=== PATIENT | female | born 1990 | race Two or more races ===

== ENCOUNTER 2018-03-13 | Emergency (ER) | payer MEDICAID ==
[~2018-03-13] VITALS: Ht 162.6 cm; Wt 104.3 kg
[2018-03-13 00:28] VITALS: BP 140/85
--- NOTE | 2018-03-13 00:43 | Emergency Room Report ---
History of Present Illness General Chief Complaint: Flu Like Symptoms Source: Patient Present Illness HPI Patient present with complaints of sore throat Cough and congestion left-sided ear pain symptoms started several days ago Patient has a mild cough denies any phlegm production Denies any chest pain or shortness of breath denies any vomiting or diarrhea Patient has some mild general body ache as well Denies any recent travel Denies any neck pain or photophobia Allergies: Coded Allergies: No Known Allergies (Unverified , 03/13/18) Patient History Past Medical History: see triage record Pertinent Family History: none Last Menstrual Period: 02/04/18 Now: No Reviewed Nursing Documentation: PMH: Agreed; PSxH: Agreed Nursing Documentation-PMH Past Medical History: No Stated History Review of Systems All Other Systems: negative except mentioned in HPI Physical Exam Vital Signs Date Time Temp Pulse Resp B/P (MAP) Pulse Ox O2 Delivery O2 Flow Rate FiO2 03/13/18 00:19 98.8 68 16 140/85 98 03/13/18 00:28 Room Air Sp02 EP Interpretation: reviewed, normal General Appearance: well appearing, no apparent distress Head: normocephalic, atraumatic Eyes: bilateral eye PERRL, bilateral eye EOMI ENT: hearing grossly normal, TMs + canals normal, uvula midline, pharyngeal erythema Neck: full range of motion, supple, no meningismus, no bony tend Respiratory: lungs clear, normal breath sounds, no rhonchi, no respiratory distress, no retraction, no accessory muscle use Cardiovascular #1: normal peripheral pulses, regular rate, rhythm, no edema, no gallop, no JVD, no murmur Gastrointestinal: normal bowel sounds, non tender, soft, no mass, no organomegaly, non-distended, no guarding, no hernia, no pulsatile mass, no rebound Genitourinary: no CVA tenderness Musculoskeletal: normal inspection Neurologic: oriented x3, responsive, travel pta III-XII nml as tested, motor strength/ tone normal, sensory intact Psychiatric: mood/affect normal Skin: normal color, no rash, warm/dry, palpation normal Lymphatic: normal inspection, no adenopathy Medical Decision Making Diagnostic Impression: Primary Impression: Pharyngitis ER Course Patient's clinical presentation and exam is consistent with pharyngitis With secondary pathology likely due to that I do not suspect any obvious meningitis does not have any symptoms of ammonia does not appear septic or toxic and will have initial conservative outpatient trial Last Vital Signs Date Time Temp Pulse Resp B/P (MAP) Pulse Ox O2 Delivery O2 Flow Rate FiO2 03/13/18 00:28 68 16 Room Air 03/13/18 00:28 98.8 140/85 98 Status: unchanged Disposition: HOME, SELF-CARE Condition: Stable Additional Instructions: Patient is provided with the discharge instructions notified to follow up with primary doctor in the next 2-3 days otherwise return to the er with any worsening symptoms. Please note that this report is being documented using [employer] technology. This can lead to erroneous entry secondary to incorrect interpretation by the dictating instrument. Dennise Hunt DO Mar 13, 2018 00:43
[2018-03-13] MEDS ORDERED: IBUPROFEN600 MG ORAL (00:44)
[2018-03-13] MEDS ORDERED: AMOXICILLIN500 MG ORAL (00:44)
[2018-03-13 01:02] VITALS: BP 140/85
== END 2018-03-13 01:00 | disposition home or self-care (01) ==
LOC: EMR 00:14
DX: J02.9 Acute pharyngitis, unspecified (principal); H92.02 Otalgia, left ear; R05 Cough; R09.81 Nasal congestion
CPT/HCPCS: 99283

== ENCOUNTER 2018-03-21 19:47 | Emergency (ER) | payer MEDICAID ==
[~2018-03-21] VITALS: Ht 157.5 cm; Wt 104.3 kg
[~2018-03-21 19:47] MED LIST: AMOXICILLIN500 MG ORAL; IBUPROFEN600 MG ORAL
[2018-03-21 20:05] VITALS: BP 128/85
[2018-03-21] MEDS ORDERED: Norco 5mg/325mg tab ORAL ONE (20:15)
[2018-03-21] MEDS ORDERED: HYDROCODON-ACE1 EA15 ORAL (20:16)
[2018-03-21] MEDS ORDERED: IBUPROFEN600 MG ORAL (20:16)
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
[2018-03-21 20:26] VITALS: BP 122/86
== END 2018-03-21 20:26 | disposition home or self-care (01) ==
LOC: EMR 20:11
DX: S29.012A Strain of muscle and tendon of back wall of thorax, initial encounter (principal); S39.012A Strain of muscle, fascia and tendon of lower back, initial encounter; V43.92XA Unspecified car occupant injured in collision with other type car in traffic accident, initial encounter; Y92.410 Unspecified street and highway as the place of occurrence of the external cause
CPT/HCPCS: 99282

== ENCOUNTER 2018-07-25 22:39 | Emergency (ER) | payer MEDICAID ==
[~2018-07-25] VITALS: Ht 160 cm; Wt 106.1 kg
[~2018-07-25 22:39] MED LIST changes: +HYDROCODON-ACE1 EA15 ORAL
[2018-07-25] MEDS ORDERED: NKM (22:46)
--- NOTE | 2018-07-25 23:06 | Emergency Room Report ---
History of Present Illness General Chief Complaint: General Complaint Source: Patient Present Illness HPI Is a 27 year female with no past medical history. She presents with chief complaint of dizziness. This occur doing work on her break. She felt lightheaded and dizzy. She came home and had a fever subjectively. After was sweating. Denies any nausea vomiting. Denies any cough or congestion. Denies any urinary complaint. No abdominal pain. Better now. Denies any other complaint. Allergies: Coded Allergies: No Known Allergies (Unverified , 03/13/18) Patient History Past Medical History: see triage record, old chart reviewed Past Surgical History: none Pertinent Family History: none Social History: Denies: smoking Last Menstrual Period: 06/25/18 Now: No : 2 Para: 1 Immunizations: other Reviewed Nursing Documentation: PMH: Agreed; PSxH: Agreed Nursing Documentation-PMH Past Medical History: No History, Except For Review of Systems Constitutional: Reports: chills, sweats, fever Eye: Denies: eye pain, blurred vision ENT: Denies: ear pain, nose congestion, throat swelling Respiratory: Denies: cough, shortness of breath Cardiovascular: Denies: chest pain, palpitations Gastrointestinal: Denies: abdominal pain, diarrhea, nausea, vomiting Musculoskeletal: Denies: back pain, joint pain Skin: Denies: rash Neurological: Reports: dizziness; Denies: headache, numbness Endocrine: Denies: increased thirst, increased urine Hematologic/Lymphatic: Denies: easy bruising All Other Systems: negative except mentioned in HPI Physical Exam Vital Signs Date Time Temp Pulse Resp B/P (MAP) Pulse Ox O2 Delivery O2 Flow Rate FiO2 07/25/18 22:41 99.5 99 18 135/92 97 Room Air vitals unremarkable Sp02 EP Interpretation: reviewed, normal General Appearance: well appearing, no apparent distress, alert Head: normocephalic, atraumatic Eyes: bilateral eye PERRL, bilateral eye EOMI ENT: hearing grossly normal, normal pharynx Neck: full range of motion, supple, no meningismus Respiratory: chest non-tender, lungs clear, normal breath sounds Cardiovascular #1: regular rate, rhythm, no murmur Gastrointestinal: normal bowel sounds, non tender, no mass, no organomegaly, no bruit, non-distended Musculoskeletal: back normal, gait/station normal, normal range of motion Psychiatric: mood/affect normal Skin: warm/dry Medical Decision Making Diagnostic Impression: Primary Impression: Generalized weakness ER Course Patient presents with generalize weakness and dizziness. She did have a low- grade fever. No evidence of any bacterial infection. This may be very early in the process of an illness. Most likely viral in nature. Explained this to the patient. If symptom worsen definitely come on back. She felt better now. We'll discharge home. Last Vital Signs Date Time Temp Pulse Resp B/P (MAP) Pulse Ox O2 Delivery O2 Flow Rate FiO2 07/25/18 22:41 99.5 99 18 135/92 97 Room Air Status: improved Disposition: HOME, SELF-CARE Condition: Stable Scripts Ibuprofen* (MOTRIN*) 600 Mg Tablet 600 MG ORAL THREE TIMES A DAY, #30 TAB 0 Refills Prov: Ryan Owens MD 07/25/18 Additional Instructions: Follow-up with your DrOralia in 7 days. Return if symptom worsen. Ryan Owens MD Jul 25, 2018 23:06
[2018-07-25] MEDS ORDERED: Ketorolac 30mg Inj IV ONE (23:15)
[2018-07-25 23:24] VITALS: BP 142/90
[2018-07-25 23:31] LABS: APPEARANCE,URINE CLEAR; BILIRUBIN, URINE NEGATIVE (NEGATIVE); COLOR,URINE PALE YELLOW; GLUCOSE, URINE (UA) NEGATIVE (NEGATIVE); KETONES,URINE NEGATIVE (NEGATIVE); LEUKOCYTE ESTERASE ,URINE 1+ (NEGATIVE); NITRITE,URINE NEGATIVE (NEGATIVE); PH,URINE 6 (4.5-8.0); PROTEIN,URINE NEGATIVE (NEGATIVE); UROBILINOGEN,URINE NORMAL MG/DL (0.0-1.0)
[2018-07-25 23:34] LABS: BASOPHILS % (AUTO) 0.7 % (0.0-2.0); HEMATOCRIT 39.8 % (37.0-47.0); HEMOGLOBIN 14.1 G/DL (12.0-16.0); LYMPHOCYTES % (AUTO) 22.6 % (20.0-45.0); MEAN CORPUSCULAR VOLUME 90 FL (80-99); MONOCYTES % (AUTO) 5.9 % (1.0-10.0); NEUTROPHILS % (AUTO) 68.7 % (45.0-75.0); PLATELET COUNT 350 K/UL (150-450); RED BLOOD COUNT 4.41 M/UL (4.20-5.40); RED CELL DISTRIBUTION WIDTH 11.5 % (11.6-14.8); WHITE BLOOD COUNT 8.1 K/UL (4.8-10.8)
[2018-07-25 23:43] LABS: ANION GAP 9 mmol/L (5-15); BLOOD UREA NITROGEN 17 mg/dL (7-18); CALCIUM 8.6 MG/DL (8.5-10.1); CARBON DIOXIDE 27 MMOL/L (21-32); CHLORIDE 99 MMOL/L (98-107); CREATININE 0.8 MG/DL (0.55-1.30); POTASSIUM 3.9 MMOL/L (3.5-5.1); SODIUM 135 MMOL/L (136-145)
[2018-07-25 23:51] VITALS: BP 134/81
[2018-07-25] MEDS ORDERED: IBUPROFEN600 MG ORAL (23:53)
[2018-07-26] MEDS ORDERED: ZANTAC150 MG ORAL (19:40)
[2018-07-26] MEDS ORDERED: NEXIUM40 MG ORAL (19:40)
== END 2018-07-25 23:55 | disposition home or self-care (01) ==
LOC: EMR 22:52
DX: R53.1 Weakness (principal)
CPT/HCPCS: 36415; 80048; 81001; 81025; 85025; 96361; 96374; 99284; J1885

== ENCOUNTER 2018-07-26 16:09 | Emergency (ER) | payer MEDICAID ==
[~2018-07-26] VITALS: Ht 160 cm; Wt 106.1 kg
[~2018-07-26 16:09] MED LIST changes: +NKM
--- NOTE | 2018-07-26 16:20 | NUR ---
ED Nurse Note: pt walked in ED c/o abd pain and fever since yesterday, pt states abd pain started yesterday on epigastric region, sharp pain,but denies n/v/d at this time but states had nausea earlier. Temp 99.7 in triage. Last BM was today, hard stool, reports constipation. Pt AA&ox4, gcs=15, skin warm and dry, resp even and unlabored on RA, abd soft and tender, active BS, no active n/v/d, ambulates w/ steady gait. will cont monitor.
[2018-07-26 16:25] VITALS: BP 135/92
[2018-07-26] MEDS ORDERED: Lidocaine 2% Visc 15ml soln ORAL ONE (16:45)
[2018-07-26] MEDS ORDERED: Mylanta II UD 30ml ORAL ONE (16:45)
--- NOTE | 2018-07-26 16:47 | Emergency Room Report ---
History of Present Illness General Chief Complaint: Abdominal Pain Source: Patient Present Illness HPI 27-year-old female presents to the emergency department complaining of 9 out of 10 in severity abdominal pain localized to the epigastric region times one day. Patient states that she was seen here in the emergency department for having symptoms of dizziness, nausea and intermittent hot flashes with sweating that were occurring yesterday. Patient reports she still has some episodes of dizziness which she describes as feeling near syncopal. She states she did feel some palpitations yesterday during hot flash and she states that she has not noticed any today. Patient denies past medical history other than some acid reflux. Patient states that yesterday she did take some Nexium which did not provide any relief. She reports low-grade fevers and intermittent chills. Denies recent travel or ill contacts with similar symptoms she reports she vomited after taking Nexium however no other vomiting otherwise. She believes that laying down may exacerbate her pain and she states she has chronic dull epigastric pain with on occasion acute exacerbations. no relieving factors at this time. She states she is not sure if she is . Denies Sudden onset of CALLE. Pt. reports hx of sciatica and frequent use of IBU. including use the day prior to onset of her symptoms. Allergies: Coded Allergies: No Known Allergies (Unverified , 03/13/18) Patient History Past Medical History: see triage record Past Surgical History: none Pertinent Family History: none Last Menstrual Period: 06/2018 Now: No Reviewed Nursing Documentation: PMH: Agreed; PSxH: Agreed Nursing Documentation-PMH Past Medical History: No History, Except For Review of Systems All Other Systems: negative except mentioned in HPI Physical Exam Vital Signs Date Time Temp Pulse Resp B/P (MAP) Pulse Ox O2 Delivery O2 Flow Rate FiO2 07/26/18 16:14 99.7 96 20 135/92 98 Room Air Sp02 EP Interpretation: reviewed, normal General Appearance: alert, GCS 15, non-toxic, mild distress Head: normocephalic, atraumatic Eyes: bilateral eye normal inspection, bilateral eye PERRL ENT: hearing grossly normal, normal voice Neck: full range of motion Respiratory: lungs clear, normal breath sounds, speaking full sentences Cardiovascular #1: regular rate, rhythm Gastrointestinal: normal bowel sounds, soft, non-distended, no guarding, tenderness - mid-epigastric TTP Rectal: deferred Genitourinary: normal inspection Musculoskeletal: back normal, gait/station normal, normal range of motion, non- tender Neurologic: alert, oriented x3, responsive, motor strength/tone normal, sensory intact, speech normal, grossly normal Psychiatric: judgement/insight normal Skin: normal color, no rash, warm/dry, well hydrated Lymphatic: no adenopathy Medical Decision Making PA Attestation Dr. Peters is my supervising Physician whom patient management has been discussed with. Diagnostic Impression: Primary Impression: Abdominal pain Qualified Codes: R10.13 - Epigastric pain Additional Impression: Peptic ulcer ER Course 27-year-old female presents to the emergency department complaining of 9 out of 10 in severity abdominal pain localized to the epigastric region times one day. Patient states that she was seen here in the emergency department for having symptoms of dizziness, nausea and intermittent hot flashes with sweating that were occurring yesterday. Patient reports she still has some episodes of dizziness which she describes as feeling near syncopal. She states she did feel some palpitations yesterday during hot flash and she states that she has not noticed any today. Patient denies past medical history other than some acid reflux. Patient states that yesterday she did take some Nexium which did not provide any relief. She reports low-grade fevers and intermittent chills. Denies recent travel or ill contacts with similar symptoms she reports she vomited after taking Nexium however no other vomiting otherwise. She believes that laying down may exacerbate her pain and she states she has chronic dull epigastric pain with on occasion acute exacerbations. no relieving factors at this time. She states she is not sure if she is . Denies Sudden onset of CALLE. Pt. reports hx of sciatica and frequent use of IBU. including use the day prior to onset of her symptoms. Ddx considered but are not limited to Diverticulitis, acute appy, diarrhea,UC, PUD, GE, pancreatitis, gallstone, ovarian torsion, ectopic , PID tubo-ovarian abscess. Vital signs: are WNL, pt. is afebrile H&PE are most consistent with peptic Ulcer due to IBU use or gallbladder etiology due to diet and body habitus, will evaluate for both. 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 LIPASE-UA: as performed yesterday and was normal I did not feel that repeat within 24 hours would foreign exchange dealer. -URINE HCG: NEGATIVE -LIPASE: WNL EKbpm NSR ED INTERVENTIONS: - 1 liter NS IV - GI Cocktail - Protonix PO -I do not identify an emergent condition at this time. With current presentation , pt. is stable for close outpatient follow up and conservative treatment. D/ w pt. to return promptly to ED with worsening or new symptoms.- Pt. verbalizes' understanding and agreement with proposed treatment plan. DISCHARGE: At this time pt. is stable for d/c to home. Will provide printed patient care instructions, and any necessary prescriptions. Care plan and follow up instructions have been discussed with the patient prior to discharge. Labs Test 07/26/18 16:47 Urine HCG, Qualitative Negative (NEGATIVE) Lipase 134 U/L ([id number]) EKG Diagnostic Results EP Interpretation: Dr. Peters Rate: normal - 93bpm Rhythm: NSR ST Segments: no acute changes ASA given to the pt in ED: No PA Scribe Text This Interpretation was scribed by DONNIE Nix. CT/MRI/US Diagnostic Results CT/MRI/US Diagnostic Results : Impression unremarkable other than fatty liver ---Per official radiology report- Please see report for specific details. Last Vital Signs Date Time Temp Pulse Resp B/P (MAP) Pulse Ox O2 Delivery O2 Flow Rate FiO2 07/26/18 16:25 99.7 94 18 135/92 98 Room Air Status: improved Disposition: HOME, SELF-CARE Condition: Stable Scripts Ranitidine Hcl* (ZANTAC*) 150 Mg Tablet 150 MG ORAL DAILY, #30 TAB 0 Refills Prov: Hailee Nix 07/26/18 Esomeprazole Magnesium (NEXIUM) 40 Mg Capsule.dr 40 MG ORAL BID, #28 CAP Take TWICE DAILY for 7 days, then reduce to ONCE DAILY. Prov: Hailee Nix 07/26/18 Referrals: NON PHYSICIAN (PCP) Patient Instructions: Food Choices for Peptic Ulcer Disease, Peptic Ulcer, Easy -to-Read Additional Instructions: Take medications as directed. * DISCONTINUE USE OF IBUPROFEN/ ADVIL. Follow up with a Primary Care Provider in 3-5 days FOR GI SPECIALIST REFERRAL , even if your symptoms have resolved. --Please review list of primary care clinics, if you do not already have a primary care provider Return sooner to ED if new symptoms occur, or current symptoms become worse. - Please note that this Emergency Department Report was dictated using [employer] operator helper technology software, occasionally this can lead to erroneous entry secondary to interpretation by the dictation equipment. Hailee Nix Jul 26, 2018 16:47
--- NOTE | 2018-07-26 18:20 | NUR ---
ED Nurse Note: ultrasound at the bedside.
--- NOTE | 2018-07-26 19:20 | Diagnostic Imaging Report ---
Indication:Abdominal pain Technique: Grayscale and duplex Doppler imaging of the abdomen performed. Comparison: None Findings: The liver is enlarged and slightly echogenic consistent with fatty infiltration. The gallbladder is unremarkable. The demonstrated part of the pancreas, aorta and IVC show no abnormalities. Both kidneys appear unremarkable. The spleen is normal in size. There is no biliary ductal dilatation identified. Doppler evaluation of the main portal vein shows patency. There is no ascites. No hydronephrosis seen. CBD is 3.5 mm. Impression: Hepatomegaly with fatty infiltration
[2018-07-26] MEDS ORDERED: NEXIUM40 MG ORAL (19:40)
[2018-07-26] MEDS ORDERED: ZANTAC150 MG ORAL (19:40)
--- NOTE | 2018-07-26 20:05 | NUR ---
ED Nurse Note: pt cleared to be d/c per ERMD, pt d/c and aftercare instruction provided w/ prescription, pt education done via discussion and handout, pt advised to follow up with pcp to continue care or return to ed if sx worsen or new sx develop, pt verbalized understanding and agrees with plan. pt vss, ambulatory w/ steady gait, iv d/c and wristband removed, pt left w/ all belongings.
[2018-07-26 20:06] VITALS: BP 143/88
== END 2018-07-26 20:05 | disposition home or self-care (01) ==
LOC: EMR 16:39
DX: K27.9 Peptic ulcer, site unspecified, unspecified as acute or chronic, without hemorrhage or perforation (principal)
CPT/HCPCS: 36415; 76700; 81025; 83690; 93005; 96361; 96374; 99284; S0028

== ENCOUNTER 2019-06-24 15:57 | Emergency (ER) | payer MEDICAID ==
[~2019-06-24] VITALS: Ht 160 cm; Wt 106.6 kg
[~2019-06-24 15:57] MED LIST changes: +NEXIUM40 MG ORAL; +PRILOSEC OTC20 MG ORAL; +ZANTAC150 MG ORAL
--- NOTE | 2019-06-24 16:20 | NUR ---
ED Nurse Note: Patient walked in to ER from work due to abdominal pain, N/D x 1 day. Patient stated she is feeling very dizzy since this morning. ERMD at bedside. IV access extablished, blood collected and sent down to lab with urine sample provided. Placed patient in hospital gown, cont. tick sewer showing NSR. No respiratory distress noted. Will carry out orders and will continue to monitor.
[2019-06-24 16:33] VITALS: BP 100/66
[2019-06-24 16:55] LABS: APPEARANCE,URINE CLEAR; BILIRUBIN, URINE 1+ (NEGATIVE); GLUCOSE, URINE (UA) NEGATIVE (NEGATIVE); KETONES,URINE NEGATIVE (NEGATIVE); LEUKOCYTE ESTERASE ,URINE 1+ (NEGATIVE); NITRITE,URINE NEGATIVE (NEGATIVE); PH,URINE 5 (4.5-8.0); PROTEIN,URINE 1+ (NEGATIVE); UROBILINOGEN,URINE NORMAL MG/DL (0.0-1.0)
[2019-06-24 17:00] LABS: COLOR,URINE YELLOW
[2019-06-24 17:03] LABS: HEMATOCRIT 45.6 % (37.0-47.0); HEMOGLOBIN 14.9 G/DL (12.0-16.0); MEAN CORPUSCULAR VOLUME 93 FL (80-99); PLATELET COUNT 357 K/UL (150-450); RED BLOOD COUNT 4.91 M/UL (4.20-5.40); RED CELL DISTRIBUTION WIDTH 13.3 % (11.6-14.8); WHITE BLOOD COUNT 9.6 K/UL (4.8-10.8)
[2019-06-24 17:05] LABS: ALANINE AMINOTRANSFERASE 26 U/L (12-78); ALBUMIN 3.8 G/DL (3.4-5.0); ALKALINE PHOSPHATASE 76 U/L (46-116); ANION GAP 12 mmol/L (5-15); ASPARTATE AMINO TRANSFERASE 16 U/L (15-37); BILIRUBIN,TOTAL 0.6 MG/DL (0.2-1.0); BLOOD UREA NITROGEN 20 mg/dL (7-18); CALCIUM 8.5 MG/DL (8.5-10.1); CARBON DIOXIDE 25 MMOL/L (21-32); CHLORIDE 102 MMOL/L (98-107); CREATININE 0.9 MG/DL (0.55-1.30); POTASSIUM 4.1 MMOL/L (3.5-5.1); SODIUM 139 MMOL/L (136-145)
--- NOTE | 2019-06-24 17:14 | NUR ---
ED Nurse Note: Influenza swab collected, sent to lab. IVF ongoing.
[2019-06-24 17:37] VITALS: BP 109/75
--- NOTE | 2019-06-24 17:47 | Emergency Room Report ---
History of Present Illness General Chief Complaint: Abdominal Pain Source: Patient Present Illness HPI 20-year-old female with no significant past medical history here complaining of nausea and vomiting as well as dizziness that started today. Denies any recent travel, fever and chills, URI symptoms. Denies any abdominal pain at this time. Denies urinary symptoms. Denies at this time. Denies chest pain chest pain radiation. Complains of few bouts of nonbloody emesis. Complains of 2 bouts of nonbloody diarrhea. Reports that she started getting dizzy and tingling sensation in her arms after she had already vomited 2 times. Patient is obese. Abdomen is nontender and patient is not guarding. Also complains of generalized body aches. Allergies: Coded Allergies: No Known Allergies (Unverified , 03/13/18) Patient History Past Medical History: see triage record Past Surgical History: none Pertinent Family History: none Last Menstrual Period: 05/25/2019 Now: No Immunizations: UTD Reviewed Nursing Documentation: PMH: Agreed; PSxH: Agreed Nursing Documentation-PMH Past Medical History: No Stated History Review of Systems All Other Systems: negative except mentioned in HPI Physical Exam Vital Signs Date Time Temp Pulse Resp B/P (MAP) Pulse Ox O2 Delivery O2 Flow Rate FiO2 06/24/19 16:01 98.2 122 18 109/66 (80) 96 Room Air Sp02 EP Interpretation: reviewed, normal General Appearance: no apparent distress, alert, GCS 15, non-toxic Head: normocephalic, atraumatic Eyes: bilateral eye normal inspection, bilateral eye PERRL ENT: hearing grossly normal, normal pharynx, no angioedema, normal voice Neck: normal inspection, full range of motion, supple, thyroid normal, no meningismus, no bony tend Respiratory: chest non-tender, lungs clear, normal breath sounds, no rhonchi, no respiratory distress, no retraction, no wheezing, speaking full sentences Cardiovascular #1: regular rate, rhythm, no edema, no murmur, normal capillary refill Cardiovascular #2: 2+ carotid (R), 2+ carotid (L), 2+ radial (L), 2+ femoral (R ), 2+ femoral (L), 2+ dorsalis pedis (R), 2+ dorsalis pedis (L) Gastrointestinal: normal bowel sounds, non tender, soft, no mass, no organomegaly, no peritonitis, no bruit, non-distended, no guarding, no hernia, no pulsatile mass, no rebound Rectal: deferred Genitourinary: no CVA tenderness Musculoskeletal: back normal Neurologic: alert, motor strength/tone normal, oriented x3, sensory intact, responsive, speech normal Psychiatric: judgement/insight normal, memory normal, mood/affect normal, no suicidal/homicidal ideation Skin: no rash Lymphatic: no adenopathy Medical Decision Making PA Attestation All my diagnosis and treatment plans were reviewed ad discussed with my supervising physician Dr. Noel Diagnostic Impression: Primary Impression: Nausea & vomiting Additional Impressions: Dehydration UTI (urinary tract infection) ER Course 20-year-old female with no significant past medical history here complaining of nausea and vomiting as well as dizziness that started today. Denies any recent travel, fever and chills, URI symptoms. Denies any abdominal pain at this time. Denies urinary symptoms. Denies at this time. Denies chest pain chest pain radiation. Complains of few bouts of nonbloody emesis. Complains of 2 bouts of nonbloody diarrhea. Reports that she started getting dizzy and tingling sensation in her arms after she had already vomited 2 times. Patient is obese. Abdomen is nontender and patient is not guarding. Also complains of generalized body aches. Ddx considered but are not limited to: Gastroenteritis, flulike symptoms, dehydration, UTI, appendicitis, cholecystitis Vital signs: are WNL, pt. is afebrile H&PE are most consistent with: UTI, dehydration, nausea vomiting ORDERS: CBC, CMP, lipase, UA, drug screen, urine test, omeprazole, Zofran, dicyclomine, Macrobid ED INTERVENTIONS: Pepcid, Zofran, NS bolus DISCHARGE: At this time pt. is stable for d/c to home. Will provide printed patient care instructions, and any necessary prescriptions. Care plan and follow up instructions have been discussed with the patient prior to discharge. At this time I do not believe the patient has any further imaging his abdomen is nontender to palpation, white count is within normal limits patient presents with generalized body ache mostly secondary to flulike symptom. Advised patient return to emergency room worsening symptoms. Abdominal pain. Also dizziness secondary to dehydration secondary to nausea and vomiting. Due to patient's gastritis history patient to avoid greasy and spicy acidic food. Last Vital Signs Date Time Temp Pulse Resp B/P (MAP) Pulse Ox O2 Delivery O2 Flow Rate FiO2 06/24/19 17:37 98.2 96 18 109/75 100 Room Air Disposition: HOME, SELF-CARE Condition: Stable Scripts Nitrofurantoin Monohyd/M-Cryst* (MACROBID 100 MG*) 100 Mg Capsule 100 MG ORAL EVERY 12 HOURS for 7 Days, #14 CAP Prov: Judith Rob 06/24/19 Acetaminophen* (TYLENOL EXTRA STRENGTH*) 500 Mg Tablet 500 MG ORAL Q8H PRN for Prn Headache/Temp > 101, #30 TAB 0 Refills Prov: Judith Rob 06/24/19 Dicyclomine Hcl* (DICYCLOMINE HCL*) 10 Mg Capsule 10 MG ORAL QID, #20 CAP Prov: Judith Rob 06/24/19 Omeprazole (OMEPRAZOLE) 20 Mg Tablet.dr 20 MG ORAL DAILY, #20 TAB Prov: Judith Rob 06/24/19 Ondansetron (Zofran) 4 Mg Tablet 4 MG ORAL Q6H PRN for Nausea & Vomiting, #14 TAB Prov: Judith Rob 06/24/19 Patient Instructions: Abdominal Pain, Adult, Dehydration, Adult, [id number], Nausea and Vomiting, Adult, [id number], Urinary Tract Infection, [id number] Additional Instructions: Take medication as directed, increase oral hydration, keep a brat diet, if worsening symptoms return to the emergency room Judith Rob Jun 24, 2019 17:47
[2019-06-24] MEDS ORDERED: ZOFRAN4 M1 ORAL (17:48)
[2019-06-24] MEDS ORDERED: DICYCLOMINE HCL10 MG ORAL (17:48)
[2019-06-24] MEDS ORDERED: OMEPRAZOLE20 M3 ORAL (17:48)
[2019-06-24] MEDS ORDERED: TYLENOL EXTRA500 MG ORAL (17:48)
[2019-06-24] MEDS ORDERED: NITROFURANTOIN100 M2 ORAL (17:49)
[2019-06-24 17:55] VITALS: BP 110/72
--- NOTE | 2019-06-24 17:56 | NUR ---
ER DISCHARGE NOTE: Patient is cleared to be discharged per ANDREA LARIOS, pt is aox4, on room air, with stable vital signs. pt was given dc and prescription instructions, pt was able to verbalize understanding, pt id band and iv site removed without complications. pt is able to ambulate with steady gait. pt took all belongings.
== END 2019-06-24 17:56 | disposition home or self-care (01) ==
LOC: EMR 16:15
DX: R11.2 Nausea with vomiting, unspecified (principal); E86.0 Dehydration; N39.0 Urinary tract infection, site not specified
CPT/HCPCS: 36415; 80053; 80307; 81003; 81025; 83690; 85007; 85025; 86710; 96361; 96374; 96375; J2405; J7030; S0028; Z7502; 99284

== ENCOUNTER 2019-09-29 18:01 | Inpatient (IN) | payer MEDICAID ==
[~2019-09-29] VITALS: Ht 160 cm; Wt 111.6 kg
[~2019-09-29 18:01] MED LIST changes: +DICYCLOMINE HCL10 MG ORAL; +NITROFURANTOIN100 M2 ORAL; +OMEPRAZOLE20 M3 ORAL; +TYLENOL EXTRA500 MG ORAL; +ZOFRAN4 M1 ORAL
[2019-09-29 18:15] VITALS: BP 118/72
--- NOTE | 2019-09-29 18:15 | NUR ---
ED Nurse Note: Pt walked in from home d/t lower abd pain, sharp 8/10 with dizziness since this morning. Pt having increased pain when passing gas and having BM. Respirations even and unlabored on room air. Vitals stable as documented.
[2019-09-29] MEDS ORDERED: Morphine Sulfate 4mg/ml Inj (IV USE ONLY) IVP ONE (18:30)
--- NOTE | 2019-09-29 18:51 | NUR ---
ED Nurse Note: urine and blood sent to lab
[2019-09-29 19:10] LABS: APPEARANCE,URINE CLEAR; BILIRUBIN, URINE NEGATIVE (NEGATIVE); COLOR,URINE PALE YELLOW; GLUCOSE, URINE (UA) NEGATIVE (NEGATIVE); KETONES,URINE NEGATIVE (NEGATIVE); LEUKOCYTE ESTERASE ,URINE NEGATIVE (NEGATIVE); NITRITE,URINE NEGATIVE (NEGATIVE); PH,URINE 8 (4.5-8.0); PROTEIN,URINE NEGATIVE (NEGATIVE); UROBILINOGEN,URINE NORMAL MG/DL (0.0-1.0)
--- NOTE | 2019-09-29 19:10 | NUR ---
ED Nurse Note: Pt resting in bed comfortably, no ss of distress noted. VSS. Will continue to monitor.
--- NOTE | 2019-09-29 19:11 | NUR ---
HAND-OFF:Report given to ANG Man. Pt in stable condition; plan of care endorsed.
[2019-09-29 19:12] LABS: BASOPHILS % (AUTO) 0.9 % (0.0-2.0); EOSINOPHILS % (AUTO) 0.5 % (0.0-3.0); HEMATOCRIT 41.5 % (37.0-47.0); HEMOGLOBIN 13.6 G/DL (12.0-16.0); LYMPHOCYTES % (AUTO) 13.6 % (20.0-45.0); MEAN CORPUSCULAR VOLUME 95 FL (80-99); MONOCYTES % (AUTO) 5.3 % (1.0-10.0); NEUTROPHILS % (AUTO) 79.8 % (45.0-75.0); PLATELET COUNT 402 K/UL (150-450); RED BLOOD COUNT 4.38 M/UL (4.20-5.40); RED CELL DISTRIBUTION WIDTH 12.8 % (11.6-14.8); WHITE BLOOD COUNT 15.7 K/UL (4.8-10.8)
[2019-09-29 19:18] LABS: ANION GAP 10 mmol/L (5-15); BLOOD UREA NITROGEN 9 mg/dL (7-18); CALCIUM 8.8 MG/DL (8.5-10.1); CARBON DIOXIDE 28 MMOL/L (21-32); CHLORIDE 97 MMOL/L (98-107); POTASSIUM 3.5 MMOL/L (3.5-5.1); SODIUM 135 MMOL/L (136-145)
[2019-09-29 19:22] LABS: ALANINE AMINOTRANSFERASE 24 U/L (12-78); ALBUMIN 3.8 G/DL (3.4-5.0); ALKALINE PHOSPHATASE 92 U/L (46-116); ASPARTATE AMINO TRANSFERASE 14 U/L (15-37); BILIRUBIN,TOTAL 0.8 MG/DL (0.2-1.0)
--- NOTE | 2019-09-29 19:40 | NUR ---
ED Nurse Note: Consent for CT signed, awaiting pt being taken to CT. Will continue to monitor.
[2019-09-29] MEDS ORDERED: Omnipaque-300 100ml vial INJ PRN (19:45)
--- NOTE | 2019-09-29 20:03 | NUR ---
ED Nurse Note: Assisted pt to commode. pt tolerated well no ss of distress. will continue to monitor.
--- NOTE | 2019-09-29 20:15 | NUR ---
ED Nurse Note: Pt taken to CT in stable condition. VSS no ss of distress noted.
[2019-09-29 20:45] VITALS: BP 122/75
--- NOTE | 2019-09-29 20:50 | Diagnostic Imaging Report ---
CT abdomen and pelvis with contrast History: Abdominal pain Technique: Axial contrast-enhanced CT of the abdomen and pelvis with coronal, sagittal reformatted images. CTDI is 14.2 mGy and DLP is 765.3 mGy-cm. Technique more: One or more of the following dose reduction techniques were used: automated exposure control, adjustment of the mA and/or kV according to patient size, use of iterative reconstruction technique. Comparison: None Findings: Lung bases: Normal Distal heart and esophagus: Moderate hiatal hernia. Liver: No intrahepatic lesion or ductal dilation. Gallbladder: Normal Spleen: Normal Pancreas: Normal Adrenals: Normal Kidneys: Negative for hydronephrosis or stones. Retroperitoneum: Normal caliber of the aorta. Shotty retroperitoneal lymphadenopathy. Bowel: Normal appendix. Mild transverse colon, moderate left sided and sigmoid diverticulosis. Moderate sigmoid diverticulitis with streakiness in the fat around the sigmoid colon. Negative for abscess or rupture Pelvis: Physiologic ovarian cysts. Trace pelvic free fluid. Bones: No lytic or blastic bony lesions. Impression: 1. Moderate sigmoid diverticulitis. Negative for abscess or rupture.
[2019-09-29] MEDS ORDERED: Ketorolac 30mg Inj IV ONE (21:45)
[2019-09-29 22:08] VITALS: BP 121/75
--- NOTE | 2019-09-29 22:26 | NUR ---
ED Nurse Note: report given to ANG Gary
--- NOTE | 2019-09-29 22:51 | NUR ---
ER DISCHARGE NOTE: Patient is cleared to be discharged to [facility] unit per ERMD, pt is aox4, 98% on room air, with stable vital signs. pt was given dc instructions, pt was able to verbalize understanding. pt is able to ambulate with steady gait. pt took all belongings. Pt transferred to unit with 1 RN.
--- NOTE | 2019-09-29 22:57 | Emergency Room Report ---
History of Present Illness General Chief Complaint: Abdominal Pain Source: Patient Present Illness HPI 28-year-old female presents for lower abdominal pain. Started this morning. Sharp, 7 out of 10, localized to the right lower abdomen. Notes nausea, denies vomiting. Denies diarrhea. Denies fevers or chills. No other aggravating relieving factors. 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 Patient History Past Surgical History: none Pertinent Family History: none Social History: Denies: smoking, alcohol use, drug use Last Menstrual Period: 2 weeks ago Now: No : 2 Para: 1 Immunizations: UTD Reviewed Nursing Documentation: PMH: Agreed; PSxH: Agreed Nursing Documentation-PMH Past Medical History: No History, Except For Review of Systems All Other Systems: negative except mentioned in HPI Physical Exam Vital Signs Date Time Temp Pulse Resp B/P (MAP) Pulse Ox O2 Delivery O2 Flow Rate FiO2 09/29/19 18:05 99.9 110 17 121/74 (90) 97 Room Air Sp02 EP Interpretation: reviewed, normal General Appearance: alert, GCS 15, non-toxic, obese Head: normocephalic, atraumatic Eyes: bilateral eye normal inspection, bilateral eye PERRL ENT: hearing grossly normal, normal pharynx, no angioedema, normal voice Neck: full range of motion, supple/symm/no masses Respiratory: chest non-tender, lungs clear, normal breath sounds, speaking full sentences Cardiovascular #1: regular rate, rhythm, no edema Cardiovascular #2: 2+ carotid (R), 2+ carotid (L), 2+ radial (R), 2+ radial (L) , 2+ dorsalis pedis (R), 2+ dorsalis pedis (L) Gastrointestinal: normal bowel sounds, soft, non-distended, no guarding, no rebound, tenderness - LLQ Rectal: deferred Genitourinary: normal inspection, no CVA tenderness Musculoskeletal: back normal, normal range of motion, gait/station normal, non- tender Neurologic: alert, motor strength/tone normal, oriented x3, sensory intact, responsive, speech normal Psychiatric: judgement/insight normal, memory normal, mood/affect normal, no suicidal/homicidal ideation Reflexes: 3+ bicep (R), 3+ bicep (L), 3+ tricep (R), 3+ tricep (L), 3+ knee (R) , 3+ knee (L) Skin: no rash Lymphatic: no adenopathy Medical Decision Making Diagnostic Impression: Primary Impression: Diverticulitis ER Course Hospital Course 28-year-old female presents to ED with lower abdominal pain Differential diagnoses include: appendicitis, diverticulitis, SBO, gastroenteritis Clinical course Patient placed on stretcher. corporate analyst. After initial history and physical I ordered labs, IV fluids, UA, pain medication and CT scan Labs - noted leukocytosis, Hb/Hct stable. electrolytes ok. CT abdomen and pelvis - diverticulitis without abscess or perforation Patient required additional pain medications. feels weak. Antibiotics given. Case discussed with Dr Zhao and he agreed to accept the patient to his service for further care and support I feel this is a highly complex case requiring extensive working including EKG/ Rhythm strip, Xray/CT/US, Blood/urine lab work, repeat exams while in ED, and administration of strong opiates/narcotics for pain control, admission to hospital or close patient follow up. Diagnosis - divertculitis Patient admitted to floor in serious condition Labs Test 09/29/19 18:50 White Blood Count 15.7 K/UL (4.8-10.8) Red Blood Count 4.38 M/UL (4.20-5.40) Hemoglobin 13.6 G/DL (12.0-16.0) Hematocrit 41.5 % (37.0-47.0) Mean Corpuscular Volume 95 FL (80-99) Mean Corpuscular Hemoglobin 31.0 PG (27.0-31.0) Mean Corpuscular Hemoglobin Concent 32.8 G/DL (32.0-36.0) Red Cell Distribution Width 12.8 % (11.6-14.8) Platelet Count 402 K/UL (150-450) Mean Platelet Volume 6.1 FL (6.5-10.1) Neutrophils (%) (Auto) 79.8 % (45.0-75.0) Lymphocytes (%) (Auto) 13.6 % (20.0-45.0) Monocytes (%) (Auto) 5.3 % (1.0-10.0) Eosinophils (%) (Auto) 0.5 % (0.0-3.0) Basophils (%) (Auto) 0.9 % (0.0-2.0) Urine Color Pale yellow Urine Appearance Clear Urine pH 8 (4.5-8.0) Urine Specific [place] 1.010 (1.005-1.035) Urine Protein Negative (NEGATIVE) Urine Glucose (UA) Negative (NEGATIVE) Urine Ketones Negative (NEGATIVE) Urine Blood 1+ (NEGATIVE) Urine Nitrite Negative (NEGATIVE) Urine Bilirubin Negative (NEGATIVE) Urine Urobilinogen Normal MG/DL (0.0-1.0) Urine Leukocyte Esterase Negative (NEGATIVE) Urine RBC 0-2 /HPF (0 - 2) Urine WBC 0 /HPF (0 - 2) Urine Squamous Epithelial Cells Few /LPF (NONE/OCC) Urine Bacteria Few /HPF (NONE) Urine HCG, Qualitative Negative (NEGATIVE) Sodium Level 135 MMOL/L (136-145) Potassium Level 3.5 MMOL/L (3.5-5.1) Chloride Level 97 MMOL/L (98-107) Carbon Dioxide Level 28 MMOL/L (21-32) Anion Gap 10 mmol/L (5-15) Blood Urea Nitrogen 9 mg/dL (7-18) Creatinine 1.0 MG/DL (0.55-1.30) Estimat Glomerular Filtration Rate > 60 mL/min (>60) Glucose Level 114 MG/DL (74-106) Calcium Level 8.8 MG/DL (8.5-10.1) Total Bilirubin 0.8 MG/DL (0.2-1.0) Aspartate Amino Transf (AST/SGOT) 14 U/L (15-37) Alanine Aminotransferase (ALT/SGPT) 24 U/L (12-78) Alkaline Phosphatase 92 U/L (46-116) Total Protein 7.5 G/DL (6.4-8.2) Albumin 3.8 G/DL (3.4-5.0) Globulin 3.7 g/dL Albumin/Globulin Ratio 1.0 (1.0-2.7) Lipase 129 U/L (73-393) CT/MRI/US Diagnostic Results CT/MRI/US Diagnostic Results : Imaging Test Ordered: CT A/P Impression Procedure: CT Abdomen Pelvis w/Contrast CT abdomen and pelvis with contrast History: Abdominal pain Technique: Axial contrast-enhanced CT of the abdomen and pelvis with coronal, sagittal reformatted images. CTDI is 14.2 mGy and DLP is 765.3 mGy-cm. Technique more: One or more of the following dose reduction techniques were used: automated exposure control, adjustment of the mA and/or kV according to patient size, use of iterative reconstruction technique. Comparison: None Findings: Lung bases: Normal Distal heart and esophagus: Moderate hiatal hernia. Liver: No intrahepatic lesion or ductal dilation. Gallbladder: Normal Spleen: Normal Pancreas: Normal Adrenals: Normal Kidneys: Negative for hydronephrosis or stones. Retroperitoneum: Normal caliber of the aorta. Shotty retroperitoneal lymphadenopathy. Bowel: Normal appendix. Mild transverse colon, moderate left sided and sigmoid diverticulosis. Moderate sigmoid diverticulitis with streakiness in the fat around the sigmoid colon. Negative for abscess or rupture Pelvis: Physiologic ovarian cysts. Trace pelvic free fluid. Bones: No lytic or blastic bony lesions. Impression: 1. Moderate sigmoid diverticulitis. Negative for abscess or rupture. Last Vital Signs Date Time Temp Pulse Resp B/P (MAP) Pulse Ox O2 Delivery O2 Flow Rate FiO2 09/29/19 22:27 99.7 09/29/19 22:08 81 17 121/75 98 Room Air Status: improved Disposition: ADMITTED INPATIENT Condition: Serious Referrals: NON PHYSICIAN (PCP) Channing Noel MD September 29, 2019 22:57
[2019-09-29 23:10] VITALS: BP 111/60
--- NOTE | 2019-09-29 23:10 | NUR ---
NURSE NOTES: Patient admitted from ER via gurney. All belongings veriified at bedside. Patient refused to put wallet with visa cards in the safe, made aware that hospital will not be liable for loss and damage of valuables, patient verbalized understanding. Patient is oriented to room and unit, call light is provided. C/O pain 7/10 on lower abdomen when moving. No pain at rest. Patient is unsteady due to pain, commode provided. Instructed to call for assistance prior to getting up. Educate re: fall precautions,verbalized understanding. Will call MD for admission orders.
[2019-09-29] MEDS ORDERED: PROBIOTIC1 EAC2 PO (23:22)
--- NOTE | 2019-09-29 23:30 | NUR ---
NURSE NOTES: First call made to Dr. esparza for admission orders. Awaiting call back.
--- NOTE | 2019-09-30 | NUR ---
NURSE NOTES: Second call made to Dr. Zhao for admission orders. Message left
--- NOTE | 2019-09-30 01:20 | NUR ---
NURSE NOTES: Admission orders received from Dr. Zhao. Will carry out orders.
[2019-09-30 04:00] VITALS: BP 91/60
--- NOTE | 2019-09-30 07:28 | NUR ---
HAND-OFF: Report given to Aaron Jang RN.
[2019-09-30 08:00] VITALS: BP 103/71
--- NOTE | 2019-09-30 08:09 | NUR ---
RNmade am rounds, patient is in the bed awake. no difficulty breathingnoted. C/O abdominal pain 08/08, pt. wants to wait a little while for pain medication. LAC 18 gauge IV site in-place and intact. no infiltration noted. call light is placed within reach. Bed in locked position for safety.
[2019-09-30 08:45] LABS: BASOPHILS % (AUTO) 0.5 % (0.0-2.0); EOSINOPHILS % (AUTO) 0.7 % (0.0-3.0); HEMATOCRIT 34.7 % (37.0-47.0); HEMOGLOBIN 12.5 G/DL (12.0-16.0); LYMPHOCYTES % (AUTO) 18.3 % (20.0-45.0); MEAN CORPUSCULAR VOLUME 88 FL (80-99); MONOCYTES % (AUTO) 6.6 % (1.0-10.0); PLATELET COUNT 362 K/UL (150-450); RED BLOOD COUNT 3.95 M/UL (4.20-5.40); RED CELL DISTRIBUTION WIDTH 11.2 % (11.6-14.8); WHITE BLOOD COUNT 15.2 K/UL (4.8-10.8)
[2019-09-30 08:56] LABS: ALANINE AMINOTRANSFERASE 16 U/L (12-78); ALBUMIN 3.3 G/DL (3.4-5.0); ALBUMIN/GLOBULIN RATIO 0.9 (1.0-2.7); ALKALINE PHOSPHATASE 82 U/L (46-116); ANION GAP 9 mmol/L (5-15); ASPARTATE AMINO TRANSFERASE 15 U/L (15-37); BILIRUBIN,TOTAL 1.2 MG/DL (0.2-1.0); BLOOD UREA NITROGEN 10 mg/dL (7-18); CALCIUM 8.2 MG/DL (8.5-10.1); CARBON DIOXIDE 28 MMOL/L (21-32); CHLORIDE 100 MMOL/L (98-107); CREATININE 0.9 MG/DL (0.55-1.30); POTASSIUM 3.4 MMOL/L (3.5-5.1); SODIUM 137 MMOL/L (136-145)
[2019-09-30 08:59] LABS: BILIRUBIN,DIRECT 0.2 MG/DL (0.0-0.3)
--- NOTE | 2019-09-30 09:52 | Consultation ---
History of Present Illness General Date patient seen: Sep 30, 2019 Chief Complaint: Present Illness Allergies: Coded Allergies: Dust (Verified Allergy, Mild, Itching, 09/29/19) Medication History Scheduled Lactobacillus Acidophilus (Probiotic), 1 EACH PO DAILY, (Reported) Discontinued Medications Acetaminophen* (Tylenol Extra Strength*), 500 MG ORAL Q8H PRN for Prn Headache/ Temp > 101 Discontinued Reason: Pt stopped taking med Dicyclomine Hcl* (Dicyclomine Hcl*), 10 MG ORAL QID Discontinued Reason: Pt stopped taking med Nitrofurantoin Monohyd/M-Cryst* (Macrobid 100 Mg*), 100 MG ORAL EVERY 12 HOURS Discontinued Reason: Pt stopped taking med No Known Medications* (NKM - No Known Medications*), 0 ., (Reported) Discontinued Reason: Pt stopped taking med Omeprazole (Omeprazole), 20 MG ORAL DAILY Discontinued Reason: Pt stopped taking med Omeprazole Magnesium (Prilosec Otc), 20 MG ORAL DAILY Discontinued Reason: Pt stopped taking med Ondansetron (Zofran), 4 MG ORAL Q6H PRN for Nausea & Vomiting Discontinued Reason: Pt stopped taking med Patient History Healthcare decision maker Resuscitation status Advanced Directive on File Physical Exam Last 24 Hour Vital Signs Date Time Temp Pulse Resp B/P (MAP) Pulse Ox O2 Delivery O2 Flow Rate FiO2 09/30/19 04:00 99.1 83 19 91/60 (70) 09/29/19 23:10 99.9 100 19 111/60 (77) 100 09/29/19 23:09 Room Air 09/29/19 22:51 99.7 81 16 121/75 98 Room Air 09/29/19 22:27 99.7 09/29/19 22:08 99.7 81 17 121/75 98 Room Air 09/29/19 20:45 99.7 82 16 122/75 98 Room Air 09/29/19 19:33 99.7 09/29/19 18:15 105 17 Room Air 09/29/19 18:15 99.7 84 17 118/72 98 Room Air 09/29/19 18:05 99.9 110 17 121/74 (90) 97 Room Air Intake and Output 09/29/19 09/30/19 18:59 06:59 Intake Total 300 ml Balance 300 ml Intake IV Total 300 ml # Voids 1 3 Laboratory Tests Test 5/31/20 18:50 09/30/19 07:10 White Blood Count 15.7 K/UL (4.8-10.8) H 15.2 K/UL (4.8-10.8) H Red Blood Count 4.38 M/UL (4.20-5.40) 3.95 M/UL (4.20-5.40) L Hemoglobin 13.6 G/DL (12.0-16.0) 12.5 G/DL (12.0-16.0) Hematocrit 41.5 % (37.0-47.0) 34.7 % (37.0-47.0) L Mean Corpuscular Volume 95 FL (80-99) 88 FL (80-99) Mean Corpuscular Hemoglobin 31.0 PG (27.0-31.0) 31.6 PG (27.0-31.0) H Mean Corpuscular Hemoglobin Concent 32.8 G/DL (32.0-36.0) 36.0 G/DL (32.0-36.0) Red Cell Distribution Width 12.8 % (11.6-14.8) 11.2 % (11.6-14.8) L Platelet Count 402 K/UL (150-450) 362 K/UL (150-450) Mean Platelet Volume 6.1 FL (6.5-10.1) L 5.0 FL (6.5-10.1) L Neutrophils (%) (Auto) 79.8 % (45.0-75.0) H 74.0 % (45.0-75.0) Lymphocytes (%) (Auto) 13.6 % (20.0-45.0) L 18.3 % (20.0-45.0) L Monocytes (%) (Auto) 5.3 % (1.0-10.0) 6.6 % (1.0-10.0) Eosinophils (%) (Auto) 0.5 % (0.0-3.0) 0.7 % (0.0-3.0) Basophils (%) (Auto) 0.9 % (0.0-2.0) 0.5 % (0.0-2.0) Urine Color Pale yellow Urine Appearance Clear Urine pH 8 (4.5-8.0) Urine Specific [place] 1.010 (1.005-1.035) Urine Protein Negative (NEGATIVE) Urine Glucose (UA) Negative (NEGATIVE) Urine Ketones Negative (NEGATIVE) Urine Blood 1+ (NEGATIVE) H Urine Nitrite Negative (NEGATIVE) Urine Bilirubin Negative (NEGATIVE) Urine Urobilinogen Normal MG/DL (0.0-1.0) Urine Leukocyte Esterase Negative (NEGATIVE) Urine RBC 0-2 /HPF (0 - 2) Urine WBC 0 /HPF (0 - 2) Urine Squamous Epithelial Cells Few /LPF (NONE/OCC) Urine Bacteria Few /HPF (NONE) Urine HCG, Qualitative Negative (NEGATIVE) Sodium Level 135 MMOL/L (136-145) L 137 MMOL/L (136-145) Potassium Level 3.5 MMOL/L (3.5-5.1) 3.4 MMOL/L (3.5-5.1) L Chloride Level 97 MMOL/L (98-107) L 100 MMOL/L (98-107) Carbon Dioxide Level 28 MMOL/L (21-32) 28 MMOL/L (21-32) Anion Gap 10 mmol/L (5-15) 9 mmol/L (5-15) Blood Urea Nitrogen 9 mg/dL (7-18) 10 mg/dL (7-18) Creatinine 1.0 MG/DL (0.55-1.30) 0.9 MG/DL (0.55-1.30) Estimat Glomerular Filtration Rate > 60 mL/min (>60) > 60 mL/min (>60) Glucose Level 114 MG/DL (74-106) H 106 MG/DL (74-106) Calcium Level 8.8 MG/DL (8.5-10.1) 8.2 MG/DL (8.5-10.1) L Total Bilirubin 0.8 MG/DL (0.2-1.0) 1.2 MG/DL (0.2-1.0) H Aspartate Amino Transf (AST/SGOT) 14 U/L (15-37) L 15 U/L (15-37) Alanine Aminotransferase (ALT/SGPT) 24 U/L (12-78) 16 U/L (12-78) Alkaline Phosphatase 92 U/L (46-116) 82 U/L (46-116) Total Protein 7.5 G/DL (6.4-8.2) 6.9 G/DL (6.4-8.2) Albumin 3.8 G/DL (3.4-5.0) 3.3 G/DL (3.4-5.0) L Globulin 3.7 g/dL 3.6 g/dL Albumin/Globulin Ratio 1.0 (1.0-2.7) 0.9 (1.0-2.7) L Lipase 129 U/L (73-393) Direct Bilirubin 0.2 MG/DL (0.0-0.3) Height (Feet): 5 Height (Inches): 3.00 Weight (Pounds): 243 Medications Current Medications Medications (Trade) Dose Ordered Sig/[place] Route PRN Reason Start Time Stop Time Status Last Admin Dose Admin Acetaminophen (Tylenol) 650 mg Q4H PRN ORAL mild pain 1-3/ temp>100.5 09/30/19 00:30 10/30/19 00:29 09/30/19 08:31 Iohexol (OMNIPAQUE-300 100ml) 100 ml NOW PRN INJ Radiology Procedure 09/29/19 19:45 10/01/19 19:39 Ondansetron HCl (Zofran) 4 mg Q6H PRN IVP Nausea & Vomiting 09/30/19 00:30 10/30/19 00:29 09/30/19 08:51 Sodium Chloride 1,000 ml @ 60 mls/hr [id number] IV 09/30/19 00:30 10/30/19 00:29 09/30/19 01:05 Assessment/Plan Assessment/Plan: (1) Abdominal pain (2) Diverticulitis seen dictated Stalin Cristobal Sep 30, 2019 09:52
[2019-09-30 12:00] VITALS: BP 100/62
--- NOTE | 2019-09-30 12:24 | General Progress Note ---
Assessment/Plan Problem List: (1) Diverticulitis ICD Codes: K57.92 - Diverticulitis of intestine, part unspecified, without perforation or abscess without bleeding SNOMED: 701884229 Assessment/Plan: abx ivf pain control start clears needs out patient colonoscopy in 8 weeks Subjective ROS Limited/Unobtainable: Yes Allergies: Coded Allergies: Dust (Verified Allergy, Mild, Itching, 09/29/19) Objective Last 24 Hour Vital Signs Date Time Temp Pulse Resp B/P (MAP) Pulse Ox O2 Delivery O2 Flow Rate FiO2 09/30/19 04:00 99.1 83 19 91/60 (70) 09/29/19 23:10 99.9 100 19 111/60 (77) 100 09/29/19 23:09 Room Air 09/29/19 22:51 99.7 81 16 121/75 98 Room Air 09/29/19 22:27 99.7 09/29/19 22:08 99.7 81 17 121/75 98 Room Air 09/29/19 20:45 99.7 82 16 122/75 98 Room Air 09/29/19 19:33 99.7 09/29/19 18:15 105 17 Room Air 09/29/19 18:15 99.7 84 17 118/72 98 Room Air 09/29/19 18:05 99.9 110 17 121/74 (90) 97 Room Air Intake and Output 09/29/19 09/30/19 19:00 07:00 Intake Total 300 ml Balance 300 ml Intake IV Total 300 ml # Voids 1 3 Laboratory Tests 09/29/19 18:50: White Blood Count 15.7H, Red Blood Count 4.38, Hemoglobin 13.6, Hematocrit 41.5 , Mean Corpuscular Volume 95, Mean Corpuscular Hemoglobin 31.0, Mean Corpuscular Hemoglobin Concent 32.8, Red Cell Distribution Width 12.8, Platelet Count 402, Mean Platelet Volume 6.1L, Neutrophils (%) (Auto) 79.8H, Lymphocytes (%) (Auto) 13.6L, Monocytes (%) (Auto) 5.3, Eosinophils (%) (Auto) 0.5, Basophils (%) (Auto) 0.9, Urine Color Pale yellow, Urine Appearance Clear, Urine pH 8, Urine Specific [place] 1.010, Urine Protein Negative, Urine Glucose (UA) Negative, Urine Ketones Negative, Urine Blood 1+H, Urine Nitrite Negative, Urine Bilirubin Negative, Urine Urobilinogen Normal, Urine Leukocyte Esterase Negative, Urine RBC 0-2, Urine WBC 0, Urine Squamous Epithelial Cells Few, Urine Bacteria Few, Urine HCG, Qualitative Negative, Sodium Level 135L, Potassium Level 3.5, Chloride Level 97L, Carbon Dioxide Level 28, Anion Gap 10, Blood Urea Nitrogen 9, Creatinine 1.0, Estimat Glomerular Filtration Rate > 60, Glucose Level 114H, Calcium Level 8.8, Total Bilirubin 0.8, Aspartate Amino Transf (AST/SGOT) 14L, Alanine Aminotransferase (ALT/SGPT) 24, Alkaline Phosphatase 92, Total Protein 7.5, Albumin 3.8, Globulin 3.7, Albumin/Globulin Ratio 1.0, Lipase 129 09/30/19 07:10: White Blood Count 15.2H, Red Blood Count 3.95L, Hemoglobin 12.5, Hematocrit 34.7L, Mean Corpuscular Volume 88, Mean Corpuscular Hemoglobin 31.6H, Mean Corpuscular Hemoglobin Concent 36.0, Red Cell Distribution Width 11.2L, Platelet Count 362, Mean Platelet Volume 5.0L, Neutrophils (%) (Auto) 74.0, Lymphocytes (%) (Auto) 18.3L, Monocytes (%) (Auto) 6.6, Eosinophils (%) (Auto) 0.7, Basophils (%) (Auto) 0.5, Sodium Level 137, Potassium Level 3.4L, Chloride Level 100, Carbon Dioxide Level 28, Anion Gap 9, Blood Urea Nitrogen 10, Creatinine 0.9, Estimat Glomerular Filtration Rate > 60, Glucose Level 106, Calcium Level 8.2L, Total Bilirubin 1.2H, Aspartate Amino Transf (AST/SGOT) 15, Alanine Aminotransferase (ALT/SGPT) 16, Alkaline Phosphatase 82, Total Protein 6.9, Albumin 3.3L, Globulin 3.6, Albumin/Globulin Ratio 0.9L, Direct Bilirubin 0.2 Height (Feet): 5 Height (Inches): 3.00 Weight (Pounds): 243 General Appearance: alert EENT: PERRL/EOMI Neck: supple Cardiovascular: normal rate Respiratory/Chest: decreased breath sounds Abdomen: soft, hypoactive bowel sounds, tender Extremities: non-tender Nicolás Bunn MD Sep 30, 2019 12:24
--- NOTE | 2019-09-30 12:59 | Consultation ---
History of Present Illness General Date patient seen: Sep 30, 2019 Reason for Hospitalization: Abdominal Pain Present Illness HPI This is a very pleasant 20-year-old female with no known past medical history and 1 prior child who presents [facility] complaining of worsening abdominal pain. Patient states that she began to have some abdominal cramping overnight and initially believed it to be potential gas or simple cramping and initially tried chamomile tea without improvement. She tried other over-the- counter remedies without significant improvement. As the pain worsened she came [facility] for evaluation. Noted to have leukocytosis and CT with diverticulitis. Surgery called to evaluate and assist with care. Patient seen, patient evaluated, chart reviewed. Still states she has pain mainly in the pelvic region and lower left quadrant but does have overall generalized discomfort in the abdomen. No nausea vomiting fever chills currently in discussing her history patient states that this may actually be her second episode she had something similar in the past Allergies: Coded Allergies: Dust (Verified Allergy, Mild, Itching, 09/29/19) COVID-19 Screening Contact w/high risk pt: No Recent Travel to affected area: No Experienced COVID-19 symptoms?: No Medication History Scheduled Lactobacillus Acidophilus (Probiotic), 1 EACH PO DAILY, (Reported) Discontinued Medications Acetaminophen* (Tylenol Extra Strength*), 500 MG ORAL Q8H PRN for Prn Headache/ Temp > 101 Discontinued Reason: Pt stopped taking med Dicyclomine Hcl* (Dicyclomine Hcl*), 10 MG ORAL QID Discontinued Reason: Pt stopped taking med Nitrofurantoin Monohyd/M-Cryst* (Macrobid 100 Mg*), 100 MG ORAL EVERY 12 HOURS Discontinued Reason: Pt stopped taking med No Known Medications* (NKM - No Known Medications*), 0 ., (Reported) Discontinued Reason: Pt stopped taking med Omeprazole (Omeprazole), 20 MG ORAL DAILY Discontinued Reason: Pt stopped taking med Omeprazole Magnesium (Prilosec Otc), 20 MG ORAL DAILY Discontinued Reason: Pt stopped taking med Ondansetron (Zofran), 4 MG ORAL Q6H PRN for Nausea & Vomiting Discontinued Reason: Pt stopped taking med Patient History History Provided By: Patient Healthcare decision maker Resuscitation status Advanced Directive on File Past Medical/Surgical History Past Medical/Surgical History: (1) Diverticulitis Review of Systems Review of Symptoms General ROS: no weight loss or fever Psychological ROS: no depression or mood changes, no memory loss Ophthalmic ROS: no visual changes or eye irritation ENT ROS: no nasal congestion, hearing loss, dizziness Allergy and Immunology ROS: no allergic symptoms or urticaria Hematological and Lymphatic ROS: no swollen glands, unusual bleeding or bruising Endocrine ROS: no polyuria, polydipsia, weight changes, temperature intolerance Respiratory ROS: no cough, shortness of breath, or wheezing Cardiovascular ROS: no chest pain or dyspnea on exertion Gastrointestinal ROS: ++ abdominal pain, bright red blood in stool. Musculoskeletal ROS: no myalgias or arthralgias Neurological ROS: no TIA or stroke symptoms Dermatological ROS: no new or changing skin lesions, rashes or pruritis Physical Exam Physical Exam General appearance: alert, cooperative, no distress, appears stated age Head: Normocephalic, without obvious abnormality, atraumatic Eyes: conjunctivae/corneas clear. PERRL, EOM's intact. Fundi benign Throat: Lips, mucosa, and tongue normal. Teeth and gums normal Neck: supple, symmetrical, trachea midline, no adenopathy, thyroid: not enlarged, symmetric, no tenderness/mass/nodules, no carotid bruit and no JVD Lungs: clear to auscultation bilaterally Heart: regular rate and rhythm, S1, S2 normal, no murmur, click, rub or gallop Abdomen: soft, LLQ-tender. Bowel sounds normal. No masses, no organomegaly Extremities: extremities normal, atraumatic, no cyanosis or edema Pulses: 2+ and symmetric Skin: Skin color, texture, turgor normal. No rashes or lesions Neurologic: Grossly normal Last 24 Hour Vital Signs Date Time Temp Pulse Resp B/P (MAP) Pulse Ox O2 Delivery O2 Flow Rate FiO2 09/30/19 04:00 99.1 83 19 91/60 (70) 09/29/19 23:10 99.9 100 19 111/60 (77) 100 09/29/19 23:09 Room Air 09/29/19 22:51 99.7 81 16 121/75 98 Room Air 09/29/19 22:27 99.7 09/29/19 22:08 99.7 81 17 121/75 98 Room Air 09/29/19 20:45 99.7 82 16 122/75 98 Room Air 09/29/19 19:33 99.7 09/29/19 18:15 105 17 Room Air 09/29/19 18:15 99.7 84 17 118/72 98 Room Air 09/29/19 18:05 99.9 110 17 121/74 (90) 97 Room Air Intake and Output 09/29/19 09/30/19 19:00 07:00 Intake Total 300 ml Balance 300 ml Intake IV Total 300 ml # Voids 1 3 Laboratory Tests Test 09/29/19 18:50 09/30/19 07:10 White Blood Count 15.7 K/UL (4.8-10.8) H 15.2 K/UL (4.8-10.8) H Red Blood Count 4.38 M/UL (4.20-5.40) 3.95 M/UL (4.20-5.40) L Hemoglobin 13.6 G/DL (12.0-16.0) 12.5 G/DL (12.0-16.0) Hematocrit 41.5 % (37.0-47.0) 34.7 % (37.0-47.0) L Mean Corpuscular Volume 95 FL (80-99) 88 FL (80-99) Mean Corpuscular Hemoglobin 31.0 PG (27.0-31.0) 31.6 PG (27.0-31.0) H Mean Corpuscular Hemoglobin Concent 32.8 G/DL (32.0-36.0) 36.0 G/DL (32.0-36.0) Red Cell Distribution Width 12.8 % (11.6-14.8) 11.2 % (11.6-14.8) L Platelet Count 402 K/UL (150-450) 362 K/UL (150-450) Mean Platelet Volume 6.1 FL (6.5-10.1) L 5.0 FL (6.5-10.1) L Neutrophils (%) (Auto) 79.8 % (45.0-75.0) H 74.0 % (45.0-75.0) Lymphocytes (%) (Auto) 13.6 % (20.0-45.0) L 18.3 % (20.0-45.0) L Monocytes (%) (Auto) 5.3 % (1.0-10.0) 6.6 % (1.0-10.0) Eosinophils (%) (Auto) 0.5 % (0.0-3.0) 0.7 % (0.0-3.0) Basophils (%) (Auto) 0.9 % (0.0-2.0) 0.5 % (0.0-2.0) Urine Color Pale yellow Urine Appearance Clear Urine pH 8 (4.5-8.0) Urine Specific [place] 1.010 (1.005-1.035) Urine Protein Negative (NEGATIVE) Urine Glucose (UA) Negative (NEGATIVE) Urine Ketones Negative (NEGATIVE) Urine Blood 1+ (NEGATIVE) H Urine Nitrite Negative (NEGATIVE) Urine Bilirubin Negative (NEGATIVE) Urine Urobilinogen Normal MG/DL (0.0-1.0) Urine Leukocyte Esterase Negative (NEGATIVE) Urine RBC 0-2 /HPF (0 - 2) Urine WBC 0 /HPF (0 - 2) Urine Squamous Epithelial Cells Few /LPF (NONE/OCC) Urine Bacteria Few /HPF (NONE) Urine HCG, Qualitative Negative (NEGATIVE) Sodium Level 135 MMOL/L (136-145) L 137 MMOL/L (136-145) Potassium Level 3.5 MMOL/L (3.5-5.1) 3.4 MMOL/L (3.5-5.1) L Chloride Level 97 MMOL/L (98-107) L 100 MMOL/L (98-107) Carbon Dioxide Level 28 MMOL/L (21-32) 28 MMOL/L (21-32) Anion Gap 10 mmol/L (5-15) 9 mmol/L (5-15) Blood Urea Nitrogen 9 mg/dL (7-18) 10 mg/dL (7-18) Creatinine 1.0 MG/DL (0.55-1.30) 0.9 MG/DL (0.55-1.30) Estimat Glomerular Filtration Rate > 60 mL/min (>60) > 60 mL/min (>60) Glucose Level 114 MG/DL (74-106) H 106 MG/DL (74-106) Calcium Level 8.8 MG/DL (8.5-10.1) 8.2 MG/DL (8.5-10.1) L Total Bilirubin 0.8 MG/DL (0.2-1.0) 1.2 MG/DL (0.2-1.0) H Aspartate Amino Transf (AST/SGOT) 14 U/L (15-37) L 15 U/L (15-37) Alanine Aminotransferase (ALT/SGPT) 24 U/L (12-78) 16 U/L (12-78) Alkaline Phosphatase 92 U/L (46-116) 82 U/L (46-116) Total Protein 7.5 G/DL (6.4-8.2) 6.9 G/DL (6.4-8.2) Albumin 3.8 G/DL (3.4-5.0) 3.3 G/DL (3.4-5.0) L Globulin 3.7 g/dL 3.6 g/dL Albumin/Globulin Ratio 1.0 (1.0-2.7) 0.9 (1.0-2.7) L Lipase 129 U/L (73-393) Direct Bilirubin 0.2 MG/DL (0.0-0.3) Height (Feet): 5 Height (Inches): 3.00 Weight (Pounds): 243 Medications Current Medications Medications (Trade) Dose Ordered Sig/[place] Route PRN Reason Start Time Stop Time Status Last Admin Dose Admin Acetaminophen (Tylenol) 650 mg Q4H PRN ORAL mild pain 1-3/ temp>100.5 09/30/19 00:30 10/30/19 00:29 09/30/19 08:31 Iohexol (OMNIPAQUE-300 100ml) 100 ml NOW PRN INJ Radiology Procedure 09/29/19 19:45 10/01/19 19:39 Ondansetron HCl (Zofran) 4 mg Q6H PRN IVP Nausea & Vomiting 09/30/19 00:30 10/30/19 00:29 09/30/19 08:51 Piperacillin Sod/ Tazobactam Sod 3.375 gm/Sodium Chloride 110 ml @ 27.5 mls/hr EVERY 8 HOURS IVPB 09/30/19 14:00 10/05/19 13:59 Sodium Chloride 1,000 ml @ 60 mls/hr [id number] IV 09/30/19 00:30 10/30/19 00:29 09/30/19 01:05 Assessment/Plan Problem List: (1) Diverticulitis Assessment & Plan: 28-year-old female with obesity presenting with what seemingly to be her second episode of acute diverticulitis. Low-grade fevers, leukocytosis, CT with diverticulitis no perforation no abscess. Nominal exam with discomfort and tenderness in left lower quadrant pelvic region. No acute abdomen. No acute surgical intervention currently planned. Recommend conservative medical management of acute uncomplicated diverticulitis. Given patient's age severity and history there is a possibility of worsening but hopefully she will Improved with medical management. I had a long discussion with the patient regards her care and care plan. I explained to her in detail what diverticulitis is its etiology and its potential prognosis and future course. I explained to the patient the necessity to have healthy diet exercise and weight maintenance and follow-up. She expressed understanding. For now recommend n.p.o. bowel rest IV fluids IV antibiotics Will follow with serial abdominal examinations thank you for let me participate in patient's care Findings: Lung bases: Normal Distal heart and esophagus: Moderate hiatal hernia. Liver: No intrahepatic lesion or ductal dilation. Gallbladder: Normal Spleen: Normal Pancreas: Normal Adrenals: Normal Kidneys: Negative for hydronephrosis or stones. Retroperitoneum: Normal caliber of the aorta. Shotty retroperitoneal lymphadenopathy. Bowel: Normal appendix. Mild transverse colon, moderate left sided and sigmoid diverticulosis. Moderate sigmoid diverticulitis with streakiness in the fat around the sigmoid colon. Negative for abscess or rupture Pelvis: Physiologic ovarian cysts. Trace pelvic free fluid. Bones: No lytic or blastic bony lesions. Impression: 1. Moderate sigmoid diverticulitis. Negative for abscess or rupture. ICD Codes: K57.92 - Diverticulitis of intestine, part unspecified, without perforation or abscess without bleeding SNOMED: [id number] Reji Woodson Sep 30, 2019 12:59
--- NOTE | 2019-09-30 14:16 | NUR ---
*-* INSURANCE *-* ALL AVAILABLE CLINICALS HAVE BEEN FAXED: NAZIA PLUNKETT #[phone] FAX#[phone] REVIEWS/CLINICALS
--- NOTE | 2019-09-30 15:15 | NUR ---
paged Dr. Zhao regarding potassium level 3.4, left a message, awaiting call back
[2019-09-30] MEDS: Piperacillin/Tazobactam 3.375 GM in NS 110 ML IVPB SCH ×2 (15:57→21:07)
[2019-09-30 16:00] VITALS: BP 105/63
--- NOTE | 2019-09-30 16:00 | Consultation ---
DATE OF CONSULTATION: 09/30/2019 PAIN MANAGEMENT CONSULTATION CONSULTING PHYSICIAN: Christian Jiménez MD REFERRING PHYSICIAN: Dennise Zhao MD PHYSICIAN EDUCATIONAL THERAPIST: DONNIE Robles CHIEF COMPLAINT: Abdominal pain. HISTORY OF PRESENT ILLNESS: This is a 28-year-old female, who is being seen on the Med/Surg floor of [facility] for initial pain management consultation. Patient reports that she has been having abdominal pain since yesterday morning. It is a constant acute pain, rating 6/10, 8/10 at its worst. Describing the pain as a sharp, soreness, increased with movement, and reduced with medication. Patient explained she had an episode of this about a month ago. She was given antibiotics by her primary care physician and taking probiotics; however, yesterday morning the pain started to get very severe. Taking Tylenol as an outpatient with minimal pain relief. Due to this was the brought to the emergency room and admitted into the hospital. Waiting to be seen by a comfort station attendant as well as an Infectious Diseases doctor. We were consulted so patient would have adequate pain control while here in the hospital. Patient in the ER received morphine 4 mg IV once and Toradol 30 mg IV once. Does not want to take the morphine or opiates at this time feeling that they are too strong as well as does not like to take Toradol because she has a history of abdominal ulcers and GERD. At this time, we will continue the Tylenol 650 mg tablet as needed and we were consulted so patient would have adequate pain control while here in the hospital. PAST MEDICAL HISTORY: Morbid obesity. PAST SURGICAL HISTORY: Left knee surgery. SOCIAL HISTORY: Denies smoking tobacco, drinking alcohol, and IV drug abuse. ALLERGIES: No known drug allergies. MEDICATIONS: Denies taking medications as an outpatient. REVIEW OF SYSTEMS: Denies rash, fever, chills, sweating, dizziness, drowsiness, blurred vision, sore throat, change in her weight. No shortness of breath or chest pain. No nausea, vomiting, diarrhea, or blood in the stool or urine. No dysuria. PHYSICAL EXAMINATION: GENERAL: Alert, awake, and oriented. VITAL SIGNS: Blood pressure 91/60, heart rate is 83, oxygen saturation 100%, respiratory rate 19, temperature 99 degrees Fahrenheit. LUNGS: Decreased breath sounds bilaterally. HEART: S1 and S2 regular. ABDOMEN: Obese with tenderness to palpation. BACK: Range of motion is decreased in flexion, extension. EXTREMITIES: Upper and lower extremity range of motion is full in all directions. No cyanosis. No clubbing. No edema. Sensory is intact. Reflexes are not obtainable. No adenopathy. ASSESSMENT AND PLAN: This is a 28-year-old female with abdominal pain, diverticulitis. Patient will be continued on Tylenol as needed. The patient was discussed with Dr. Jiménez and Dr. Jiménez concurred. We will follow the patient. Thank you very much for the courtesy of this consultation. Christian Jiménez M.D. DONNIE Robles DR: ARNOLDO JOB#: [id number] CC:
--- NOTE | 2019-09-30 16:57 | NUR ---
CASE MANAGEMENT:INITIAL REVIEW 28 YR OLD FEMALE WALKED IN TO ER FROM HOME CC;ABDOMINAL PAIN SI; DIVERTICULITIS. 99.9 110 17 122/75 97% ON RA WBC 15.7 NA 135 CL 97 BG 114 UA+ BLOOD ABD CT W/CONTRAST ~ Moderate sigmoid diverticulitis. Negative for abscess or rupture. IS;ZOFRAN IV ONCE MORPHINE IV ONCE IVF NS BOLUS CIPROFLOXACIN IV ONCE FLAGYL IN ONCE ADMITTED TO MED SURG @ 00:37 ON 09/30/19 MED SURG STATUS DCP;PATIENT IS FROM HOME
--- NOTE | 2019-09-30 19:36 | NUR ---
HAND-OFF: Report given to Sohail.
--- NOTE | 2019-09-30 19:37 | NUR ---
NURSE NOTES: Received a pt awake,a&o x4, and verbal. No sob,fever,cough, and pain. Iv site is intact and asymptomatic. Bed in the lower position, locked and call light within reach. We will keep monitoring
[2019-09-30 20:00] VITALS: BP 105/64
--- NOTE | 2019-09-30 22:00 | Consultation ---
DATE OF CONSULTATION: 09/30/2019 INFECTIOUS DISEASE CONSULTATION ATTENDING PHYSICIAN: Dennise Zhao M.D. REASON FOR CONSULT: Sigmoid diverticulitis. HISTORY OF PRESENT ILLNESS: A 28-year-old female admitted yesterday from home complaining of lower abdominal pain. Pain at the time of admission was 7/10. No fever, no chills, but the patient has leukocytosis of 15.7. PAST MEDICAL HISTORY: Obesity. ALLERGIES: No known drug allergy. MEDICATIONS: Getting a dose of Cipro and Flagyl in the ER, sodium chloride, Tylenol, and Zofran. SOCIAL HISTORY: Single, has a child. Denies alcohol, drug abuse, or smoking. REVIEW OF SYSTEMS: No fever. No chills. No coughing. No shortness of breath. No nausea. No vomiting. She has no bowel movements since yesterday, but before had no diarrhea, no urinary symptoms. PHYSICAL EXAMINATION: VITAL SIGNS: Temperature 99.1, maximum temperature 99.9, pulse 83, blood pressure 91/60. GENERAL APPEARANCE: No acute distress. Obese. HEAD AND NECK: [place] conjunctivae. HEART: Normal rate. LUNGS: Clear. ABDOMEN: Soft and tender in lower quadrants. EXTREMITIES: Has no edema. LABORATORY AND DIAGNOSTIC DATA: Sodium 137, potassium 3.4, chloride 100, bicarbonate 28, BUN 10, creatinine 0.9, and glucose 106. WBC 15.2, hemoglobin 12.5, hematocrit 34.7, and platelets 362. UA was negative. CT scan of the abdomen and pelvis showed [id number] sigmoid diverticulitis, negative for abscess or rupture. IMPRESSION: 1. Sigmoid diverticulitis. 2. Morbid obesity. RECOMMENDATIONS: The patient will be started on Zosyn. We will try to switch to poor to oral antibiotics soon. At the end of my exam, I thank Dr. Zhao for involving me in the care of this patient. Guillaume Todd M.D. DR: Danny JOB#: [id number] CC:
--- NOTE | 2019-09-30 22:45 | History and Physical Report ---
DATE OF ADMISSION: 09/29/2019 HISTORY OF PRESENT ILLNESS: Patient is admitted for abdominal pain, found to have also leukocytosis and found to have diverticulitis. Patient also denies nausea, vomiting, or diarrhea. Patient basically presented with lower abdominal pain that was localized to the right lower abdomen. Denies any nausea or associated symptoms. Denies fever or chills. Denies respiratory symptoms. Denies shortness of breath. Denies cough. Patient is admitted for diverticulitis. Denies diarrhea. PAST MEDICAL HISTORY: Significant for GERD. PAST SURGICAL HISTORY: Denies. ALLERGIES: To . FAMILY HISTORY: Noncontributory. SOCIAL HISTORY: Denies history of smoking, alcohol, or illicit drugs. REVIEW OF SYSTEMS: HEENT: Denies headaches. PULMONARY: Denies shortness of breath. Denies cough. CARDIOVASCULAR: Denies chest pain. GASTROINTESTINAL: Denies nausea, vomiting, or diarrhea. Does have abdominal pain for about a couple days. CENTRAL NERVOUS SYSTEM: Denies any changes in speech pattern. MEDICATIONS: Does not take anything routinely. PHYSICAL EXAMINATION: VITAL SIGNS: Temperature is 98.2, pulse is 86, blood pressure 103/71. HEENT: PERRLA. CHEST: Clear to auscultation. CARDIOVASCULAR: Regular rate and rhythm. No murmurs or extra sounds. GASTROINTESTINAL: Does have some lower abdominal tenderness, but no rebound. ABDOMEN: Soft. Positive bowel sounds. No organomegaly. EXTREMITIES: Able to moves extremities. No edema. Reflexes in both sides. LABORATORY DATA: WBC of 15.7, hemoglobin 13.6, platelets 402. Sodium 135, potassium of 3.5, BUN of 9, creatinine of 1, glucose of 114. Found to have diverticulitis without abscess or perforation on the CT imaging. ASSESSMENT AND PLAN: Abdominal pain due to diverticulitis. I have consulted basically Dr. Jiménez, Dr. Guillaume Todd, Dr. Reji Woodson, and Dr. Bunn to see if there is any surgical pathology or any surgical abdomen that needs to be addressed and pain management per Dr. Jiménez as well. Antibiotics if any per Dr. Guillaume Todd. Dennise Zhao M.D. DR: ROMERO JOB#: [id number] CC:
[2019-10-01] VITALS: BP 100/61
[2019-10-01 04:00] VITALS: BP 113/63
[2019-10-01] MEDS: Piperacillin/Tazobactam 3.375 GM in NS 110 ML IVPB SCH ×3 (05:18→21:30)
--- NOTE | 2019-10-01 07:05 | NUR ---
HAND-OFF: Report given to ANG Veliz.
--- NOTE | 2019-10-01 07:35 | NUR ---
NURSE NOTES: Received a pt awake,alert & oriented x4, verbally responsive. No acute cardio-resp distress noted. Iv site is patent and intact. Bed in the lower position, siderails are up x2. brakes locked and call light within reach. Will cont the plan of care.
[2019-10-01 07:42] LABS: BASOPHILS % (AUTO) 0.7 % (0.0-2.0); EOSINOPHILS % (AUTO) 0.7 % (0.0-3.0); HEMOGLOBIN 12.2 G/DL (12.0-16.0); LYMPHOCYTES % (AUTO) 17.6 % (20.0-45.0); MEAN CORPUSCULAR VOLUME 87 FL (80-99); MONOCYTES % (AUTO) 5.9 % (1.0-10.0); NEUTROPHILS % (AUTO) 75.1 % (45.0-75.0); PLATELET COUNT 366 K/UL (150-450); RED BLOOD COUNT 3.78 M/UL (4.20-5.40); RED CELL DISTRIBUTION WIDTH 11.3 % (11.6-14.8)
[2019-10-01 07:54] LABS: ANION GAP 10 mmol/L (5-15); BLOOD UREA NITROGEN 6 mg/dL (7-18); CALCIUM 8.4 MG/DL (8.5-10.1); CARBON DIOXIDE 27 MMOL/L (21-32); CHLORIDE 101 MMOL/L (98-107); CREATININE 0.9 MG/DL (0.55-1.30); POTASSIUM 3.2 MMOL/L (3.5-5.1); SODIUM 138 MMOL/L (136-145)
[2019-10-01 08:00] VITALS: BP 113/69
--- NOTE | 2019-10-01 08:31 | NUR ---
NURSE NOTES: informed Dr Bunn re: K+3.2 today's lab. patient is tolerating clear liq well. no n/v noted. will cont to monitor. Addendum: 10/01/19 at 1418 by GRACE NAPOLES LVN K+ 3.2 replaced with 40 meq po. able to administered. will cont to monitor
--- NOTE | 2019-10-01 10:17 | Infectious Diseases Prog Note ---
Assessment/Plan Assessment/Plan IMPRESSION: 1. Sigmoid diverticulitis. 2. Morbid obesity. RECOMMENDATIONS: Continue Zosyn in hospital At time of discharge PO Flagyl & Cipro Subjective ROS Limited/Unobtainable: No Constitutional: Reports: fever, other - low grade in am Respiratory: Reports: no symptoms Cardiovascular: Reports: no symptoms Gastrointestinal/Abdominal: Reports: other - tolerates liquid diet , lower abdominal pain Genitourinary: Reports: no symptoms Allergies: Coded Allergies: Dust (Verified Allergy, Mild, Itching, 09/29/19) Objective Vital Signs Last 24 Hour Vital Signs Date Time Temp Pulse Resp B/P (MAP) Pulse Ox O2 Delivery O2 Flow Rate FiO2 10/01/19 08:00 99.1 85 18 113/69 (84) 95 10/01/19 07:40 99.1 10/01/19 04:00 100.2 82 19 113/63 (80) 10/01/19 00:00 99.1 78 18 100/61 (74) 09/30/19 21:00 Room Air 09/30/19 20:00 99.5 85 18 105/64 (78) 09/30/19 16:00 99.8 88 19 105/63 (77) 09/30/19 12:00 98.8 80 18 100/62 (75) Height (Feet): 5 Height (Inches): 3.00 Weight (Pounds): 243 General Appearance: no acute distress HEENT: mucous membranes moist Cardiovascular: normal rate Abdomen: other - soft, tederness in lower abdomen Extremities: no edema Neurologic/Psychiatric: alert, oriented x 3, responsive Laboratory Tests Test 10/01/19 06:50 White Blood Count 17.0 K/UL (4.8-10.8) H Red Blood Count 3.78 M/UL (4.20-5.40) L Hemoglobin 12.2 G/DL (12.0-16.0) Hematocrit 33.0 % (37.0-47.0) L Mean Corpuscular Volume 87 FL (80-99) Mean Corpuscular Hemoglobin 32.1 PG (27.0-31.0) H Mean Corpuscular Hemoglobin Concent 36.9 G/DL (32.0-36.0) H Red Cell Distribution Width 11.3 % (11.6-14.8) L Platelet Count 366 K/UL (150-450) Mean Platelet Volume 4.8 FL (6.5-10.1) L Neutrophils (%) (Auto) 75.1 % (45.0-75.0) H Lymphocytes (%) (Auto) 17.6 % (20.0-45.0) L Monocytes (%) (Auto) 5.9 % (1.0-10.0) Eosinophils (%) (Auto) 0.7 % (0.0-3.0) Basophils (%) (Auto) 0.7 % (0.0-2.0) Sodium Level 138 MMOL/L (136-145) Potassium Level 3.2 MMOL/L (3.5-5.1) L Chloride Level 101 MMOL/L (98-107) Carbon Dioxide Level 27 MMOL/L (21-32) Anion Gap 10 mmol/L (5-15) Blood Urea Nitrogen 6 mg/dL (7-18) L Creatinine 0.9 MG/DL (0.55-1.30) Estimat Glomerular Filtration Rate > 60 mL/min (>60) Glucose Level 95 MG/DL (74-106) Calcium Level 8.4 MG/DL (8.5-10.1) L Current Medications Medications (Trade) Dose Ordered Sig/Belem Route PRN Reason Start Time Stop Time Status Last Admin Dose Admin Acetaminophen (Tylenol) 650 mg Q4H PRN ORAL mild pain 1-3/ temp>100.5 09/30/19 00:30 10/30/19 00:29 10/01/19 07:10 Iohexol (OMNIPAQUE-300 100ml) 100 ml NOW PRN INJ Radiology Procedure 09/29/19 19:45 10/01/19 19:39 Ondansetron HCl (Zofran) 4 mg Q6H PRN IVP Nausea & Vomiting 09/30/19 00:30 10/30/19 00:29 09/30/19 08:51 Piperacillin Sod/ Tazobactam Sod 3.375 gm/Sodium Chloride 110 ml @ 27.5 mls/hr EVERY 8 HOURS IVPB 09/30/19 14:00 10/05/19 13:59 10/01/19 05:18 Sodium Chloride 1,000 ml @ 60 mls/hr [id number] IV 09/30/19 00:30 10/30/19 00:29 10/01/19 08:42 Guillaume Todd MD Oct 01, 2019 10:17
--- NOTE | 2019-10-01 10:30 | NUR ---
NURSE NOTES: made Patricio Remy aware of the WBC result today and the temp during noc shift. will cont to monitor. Addendum: 10/01/19 at 1419 by GRACE NAPOLES LVN NO new order obtained.
--- NOTE | 2019-10-01 10:36 | NUR ---
*-* INSURANCE *-* ALL AVAILABLE CLINICALS AND REVIEW HAVE BEEN FAXED: NAZIA PLUNKETT #[phone] FAX#[phone] REVIEWS/CLINICALS
[2019-10-01 11:47] VITALS: BP 106/73
--- NOTE | 2019-10-01 12:16 | General Progress Note ---
Assessment/Plan Problem List: (1) Diverticulitis ICD Codes: K57.92 - Diverticulitis of intestine, part unspecified, without perforation or abscess without bleeding SNOMED: 858315225 Assessment/Plan: abx ivf pain control advance diet to full liquid needs out patient colonoscopy in 8 weeks Subjective ROS Limited/Unobtainable: No Allergies: Coded Allergies: Dust (Verified Allergy, Mild, Itching, 09/29/19) Objective Last 24 Hour Vital Signs Date Time Temp Pulse Resp B/P (MAP) Pulse Ox O2 Delivery O2 Flow Rate FiO2 10/01/19 11:47 98.2 80 18 106/73 (84) 96 10/01/19 09:00 Room Air 10/01/19 08:00 99.1 85 18 113/69 (84) 95 10/01/19 07:40 99.1 10/01/19 04:00 100.2 82 19 113/63 (80) 10/01/19 00:00 99.1 78 18 100/61 (74) 09/30/19 21:00 Room Air 09/30/19 20:00 99.5 85 18 105/64 (78) 09/30/19 16:00 99.8 88 19 105/63 (77) Intake and Output 09/30/19 10/01/19 19:00 07:00 Intake Total 160 ml 797.5 ml Balance 160 ml 797.5 ml Intake Oral 100 ml 300 ml IV Total 60 ml 497.5 ml # Voids 3 3 Laboratory Tests 10/01/19 06:50: White Blood Count 17.0H, Red Blood Count 3.78L, Hemoglobin 12.2, Hematocrit 33.0L, Mean Corpuscular Volume 87, Mean Corpuscular Hemoglobin 32.1H, Mean Corpuscular Hemoglobin Concent 36.9H, Red Cell Distribution Width 11.3L, Platelet Count 366, Mean Platelet Volume 4.8L, Neutrophils (%) (Auto) 75.1H, Lymphocytes (%) (Auto) 17.6L, Monocytes (%) (Auto) 5.9, Eosinophils (%) (Auto) 0.7, Basophils (%) (Auto) 0.7, Sodium Level 138, Potassium Level 3.2L, Chloride Level 101, Carbon Dioxide Level 27, Anion Gap 10, Blood Urea Nitrogen 6L, Creatinine 0.9, Estimat Glomerular Filtration Rate > 60, Glucose Level 95, Calcium Level 8.4L Height (Feet): 5 Height (Inches): 3.00 Weight (Pounds): 243 General Appearance: no apparent distress EENT: PERRL/EOMI Neck: supple Cardiovascular: normal rate Respiratory/Chest: decreased breath sounds Abdomen: normal bowel sounds, non tender, soft Extremities: non-tender Nicolás Bunn MD Oct 01, 2019 12:16
--- NOTE | 2019-10-01 12:39 | Hematology/Onc Progress Note ---
Assessment/Plan Assessment/Plan # Leukocytosis with elev wbc since admission --> likely relarted to diverticulitis --> abx and ivfs per gi, id --> no surgical intervention per surg --> outpatient colo # Abd pain due to diverticulitis --> fluids and pain management # Dehydration --> goal of euvolemia # Dvt ppx scds The timing of this note does not necessarily reflect the time of the patient was seen. Greatly appreciate consultation. Subjective Constitutional: Denies: no symptoms, chills, fever, malaise, weakness, other HEENT: Denies: no symptoms, eye pain, blurred vision, tearing, double vision, ear pain, ear discharge, nose pain, nose congestion, throat pain, throat swelling, mouth pain, mouth swelling, other Genitourinary: Denies: no symptoms, burning, discharge, frequency, flank pain, hematuria, incontinence, pain, urgency, other Neurologic/Psychiatric: Denies: no symptoms, anxiety, depressed, emotional problems, headache, numbness, paresthesia, pre-existing deficit, seizure, tingling, tremors, weakness, other Endocrine: Denies: no symptoms, excessive sweating, flushing, intolerance to cold, intolerance to heat, increased hunger, increased thirst, increased urine, unexplained weight gain, unexplained weight loss, other Allergies: Coded Allergies: Dust (Verified Allergy, Mild, Itching, 09/29/19) Subjective 6/2 on abx, with ivfs, seen by gi, less abd pain Objective Objective Current Medications Medications (Trade) Dose Ordered Sig/Belem Route PRN Reason Start Time Stop Time Status Last Admin Dose Admin Acetaminophen (Tylenol) 650 mg Q4H PRN ORAL mild pain 1-3/ temp>100.5 09/30/19 00:30 10/30/19 00:29 10/01/19 07:10 Iohexol (OMNIPAQUE-300 100ml) 100 ml NOW PRN INJ Radiology Procedure 09/29/19 19:45 10/01/19 19:39 Ondansetron HCl (Zofran) 4 mg Q6H PRN IVP Nausea & Vomiting 09/30/19 00:30 10/30/19 00:29 09/30/19 08:51 Piperacillin Sod/ Tazobactam Sod 3.375 gm/Sodium Chloride 110 ml @ 27.5 mls/hr EVERY 8 HOURS IVPB 09/30/19 14:00 10/05/19 13:59 10/01/19 05:18 Sodium Chloride 1,000 ml @ 60 mls/hr [id number] IV 09/30/19 00:30 10/30/19 00:29 10/01/19 08:42 Last 24 Hour Vital Signs Date Time Temp Pulse Resp B/P (MAP) Pulse Ox O2 Delivery O2 Flow Rate FiO2 10/01/19 11:47 98.2 80 18 106/73 (84) 96 10/01/19 09:00 Room Air 10/01/19 08:00 99.1 85 18 113/69 (84) 95 10/01/19 07:40 99.1 10/01/19 04:00 100.2 82 19 113/63 (80) 10/01/19 00:00 99.1 78 18 100/61 (74) 09/30/19 21:00 Room Air 09/30/19 20:00 99.5 85 18 105/64 (78) 09/30/19 16:00 99.8 88 19 105/63 (77) 09/30/19 12:00 98.8 80 18 100/62 (75) 09/30/19 09:00 Room Air 09/30/19 08:00 98.2 86 19 103/71 (82) 09/30/19 04:00 99.1 83 19 91/60 (70) 09/29/19 23:10 99.9 100 19 111/60 (77) 100 09/29/19 23:09 Room Air 09/29/19 22:51 99.7 81 16 121/75 98 Room Air 09/29/19 22:27 99.7 09/29/19 22:08 99.7 81 17 121/75 98 Room Air 09/29/19 20:45 99.7 82 16 122/75 98 Room Air 09/29/19 19:33 99.7 09/29/19 18:15 105 17 Room Air 09/29/19 18:15 99.7 84 17 118/72 98 Room Air 09/29/19 18:05 99.9 110 17 121/74 (90) 97 Room Air Intake and Output 09/30/19 10/01/19 19:00 07:00 Intake Total 160 ml 797.5 ml Balance 160 ml 797.5 ml Intake Oral 100 ml 300 ml IV Total 60 ml 497.5 ml # Voids 3 3 Labs Test 09/29/19 18:50 09/30/19 07:10 10/01/19 06:50 White Blood Count 15.7 K/UL (4.8-10.8) 15.2 K/UL (4.8-10.8) 17.0 K/UL (4.8-10.8) Red Blood Count 4.38 M/UL (4.20-5.40) 3.95 M/UL (4.20-5.40) 3.78 M/UL (4.20-5.40) Hemoglobin 13.6 G/DL (12.0-16.0) 12.5 G/DL (12.0-16.0) 12.2 G/DL (12.0-16.0) Hematocrit 41.5 % (37.0-47.0) 34.7 % (37.0-47.0) 33.0 % (37.0-47.0) Mean Corpuscular Volume 95 FL (80-99) 88 FL (80-99) 87 FL (80-99) Mean Corpuscular Hemoglobin 31.0 PG (27.0-31.0) 31.6 PG (27.0-31.0) 32.1 PG (27.0-31.0) Mean Corpuscular Hemoglobin Concent 32.8 G/DL (32.0-36.0) 36.0 G/DL (32.0-36.0) 36.9 G/DL (32.0-36.0) Red Cell Distribution Width 12.8 % (11.6-14.8) 11.2 % (11.6-14.8) 11.3 % (11.6-14.8) Platelet Count 402 K/UL (150-450) 362 K/UL (150-450) 366 K/UL (150-450) Mean Platelet Volume 6.1 FL (6.5-10.1) 5.0 FL (6.5-10.1) 4.8 FL (6.5-10.1) Neutrophils (%) (Auto) 79.8 % (45.0-75.0) 74.0 % (45.0-75.0) 75.1 % (45.0-75.0) Lymphocytes (%) (Auto) 13.6 % (20.0-45.0) 18.3 % (20.0-45.0) 17.6 % (20.0-45.0) Monocytes (%) (Auto) 5.3 % (1.0-10.0) 6.6 % (1.0-10.0) 5.9 % (1.0-10.0) Eosinophils (%) (Auto) 0.5 % (0.0-3.0) 0.7 % (0.0-3.0) 0.7 % (0.0-3.0) Basophils (%) (Auto) 0.9 % (0.0-2.0) 0.5 % (0.0-2.0) 0.7 % (0.0-2.0) Urine Color Pale yellow Urine Appearance Clear Urine pH 8 (4.5-8.0) Urine Specific Bent 1.010 (1.005-1.035) Urine Protein Negative (NEGATIVE) Urine Glucose (UA) Negative (NEGATIVE) Urine Ketones Negative (NEGATIVE) Urine Blood 1+ (NEGATIVE) Urine Nitrite Negative (NEGATIVE) Urine Bilirubin Negative (NEGATIVE) Urine Urobilinogen Normal MG/DL (0.0-1.0) Urine Leukocyte Esterase Negative (NEGATIVE) Urine RBC 0-2 /HPF (0 - 2) Urine WBC 0 /HPF (0 - 2) Urine Squamous Epithelial Cells Few /LPF (NONE/OCC) Urine Bacteria Few /HPF (NONE) Urine HCG, Qualitative Negative (NEGATIVE) Sodium Level 135 MMOL/L (136-145) 137 MMOL/L (136-145) 138 MMOL/L (136-145) Potassium Level 3.5 MMOL/L (3.5-5.1) 3.4 MMOL/L (3.5-5.1) 3.2 MMOL/L (3.5-5.1) Chloride Level 97 MMOL/L (98-107) 100 MMOL/L (98-107) 101 MMOL/L (98-107) Carbon Dioxide Level 28 MMOL/L (21-32) 28 MMOL/L (21-32) 27 MMOL/L (21-32) Anion Gap 10 mmol/L (5-15) 9 mmol/L (5-15) 10 mmol/L (5-15) Blood Urea Nitrogen 9 mg/dL (7-18) 10 mg/dL (7-18) 6 mg/dL (7-18) Creatinine 1.0 MG/DL (0.55-1.30) 0.9 MG/DL (0.55-1.30) 0.9 MG/DL (0.55-1.30) Estimat Glomerular Filtration Rate > 60 mL/min (>60) > 60 mL/min (>60) > 60 mL/min (>60) Glucose Level 114 MG/DL (74-106) 106 MG/DL (74-106) 95 MG/DL (74-106) Calcium Level 8.8 MG/DL (8.5-10.1) 8.2 MG/DL (8.5-10.1) 8.4 MG/DL (8.5-10.1) Total Bilirubin 0.8 MG/DL (0.2-1.0) 1.2 MG/DL (0.2-1.0) Aspartate Amino Transf (AST/SGOT) 14 U/L (15-37) 15 U/L (15-37) Alanine Aminotransferase (ALT/SGPT) 24 U/L (12-78) 16 U/L (12-78) Alkaline Phosphatase 92 U/L (46-116) 82 U/L (46-116) Total Protein 7.5 G/DL (6.4-8.2) 6.9 G/DL (6.4-8.2) Albumin 3.8 G/DL (3.4-5.0) 3.3 G/DL (3.4-5.0) Globulin 3.7 g/dL 3.6 g/dL Albumin/Globulin Ratio 1.0 (1.0-2.7) 0.9 (1.0-2.7) Lipase 129 U/L (73-393) Direct Bilirubin 0.2 MG/DL (0.0-0.3) Height (Feet): 5 Height (Inches): 3.00 Weight (Pounds): 243 Objective Gen: nad, alert and oriented Pulm ctab, no cwr CV rrr, no mgr Abd soft, nd ++ ttp to rlq and llq Ext no cce Luis Gongora MD Oct 01, 2019 12:39
--- NOTE | 2019-10-01 12:49 | Surgery Progress Note ---
Surgery Progress Note Subjective Symptoms: improved, tolerating diet, passing flatus, BM, pain decreased Additional Comments states pain much better today had flatus and soft BM still cramping discomfort Objective Last 24 Hour Vital Signs Date Time Temp Pulse Resp B/P (MAP) Pulse Ox O2 Delivery O2 Flow Rate FiO2 10/01/19 11:47 98.2 80 18 106/73 (84) 96 10/01/19 09:00 Room Air 10/01/19 08:00 99.1 85 18 113/69 (84) 95 10/01/19 07:40 99.1 10/01/19 04:00 100.2 82 19 113/63 (80) 10/01/19 00:00 99.1 78 18 100/61 (74) 09/30/19 21:00 Room Air 09/30/19 20:00 99.5 85 18 105/64 (78) 09/30/19 16:00 99.8 88 19 105/63 (77) I&O Intake and Output 09/30/19 10/01/19 19:00 07:00 Intake Total 160 ml 797.5 ml Balance 160 ml 797.5 ml Intake Oral 100 ml 300 ml IV Total 60 ml 497.5 ml # Voids 3 3 Dressing: other Wound: other Drains: other Cardiovascular: RSR Respiratory: decreased breath sounds Abdomen: soft, non-tender, present bowel sounds Extremities: no cyanosis Laboratory Tests Test 10/01/19 06:50 White Blood Count 17.0 K/UL (4.8-10.8) H Red Blood Count 3.78 M/UL (4.20-5.40) L Hemoglobin 12.2 G/DL (12.0-16.0) Hematocrit 33.0 % (37.0-47.0) L Mean Corpuscular Volume 87 FL (80-99) Mean Corpuscular Hemoglobin 32.1 PG (27.0-31.0) H Mean Corpuscular Hemoglobin Concent 36.9 G/DL (32.0-36.0) H Red Cell Distribution Width 11.3 % (11.6-14.8) L Platelet Count 366 K/UL (150-450) Mean Platelet Volume 4.8 FL (6.5-10.1) L Neutrophils (%) (Auto) 75.1 % (45.0-75.0) H Lymphocytes (%) (Auto) 17.6 % (20.0-45.0) L Monocytes (%) (Auto) 5.9 % (1.0-10.0) Eosinophils (%) (Auto) 0.7 % (0.0-3.0) Basophils (%) (Auto) 0.7 % (0.0-2.0) Sodium Level 138 MMOL/L (136-145) Potassium Level 3.2 MMOL/L (3.5-5.1) L Chloride Level 101 MMOL/L (98-107) Carbon Dioxide Level 27 MMOL/L (21-32) Anion Gap 10 mmol/L (5-15) Blood Urea Nitrogen 6 mg/dL (7-18) L Creatinine 0.9 MG/DL (0.55-1.30) Estimat Glomerular Filtration Rate > 60 mL/min (>60) Glucose Level 95 MG/DL (74-106) Calcium Level 8.4 MG/DL (8.5-10.1) L Plan Problems: (1) Diverticulitis Assessment & Plan: 28-year-old female with obesity presenting with what seemingly to be her second episode of acute diverticulitis. Low-grade fevers, leukocytosis, CT with diverticulitis no perforation no abscess. Nominal exam with discomfort and tenderness in left lower quadrant pelvic region. No acute abdomen. No acute surgical intervention currently planned. Recommend conservative medical management of acute uncomplicated diverticulitis. Given patient's age severity and history there is a possibility of worsening but hopefully she will Improved with medical management. I had a long discussion with the patient regards her care and care plan. I explained to her in detail what diverticulitis is its etiology and its potential prognosis and future course. I explained to the patient the necessity to have healthy diet exercise and weight maintenance and follow-up. She expressed understanding. For now recommend n.p.o. bowel rest IV fluids IV antibiotics trail diet transition abx to oral for d/c planning Will follow with serial abdominal examinations thank you for let me participate in patient's care Findings: Lung bases: Normal Distal heart and esophagus: Moderate hiatal hernia. Liver: No intrahepatic lesion or ductal dilation. Gallbladder: Normal Spleen: Normal Pancreas: Normal Adrenals: Normal Kidneys: Negative for hydronephrosis or stones. Retroperitoneum: Normal caliber of the aorta. Shotty retroperitoneal lymphadenopathy. Bowel: Normal appendix. Mild transverse colon, moderate left sided and sigmoid diverticulosis. Moderate sigmoid diverticulitis with streakiness in the fat around the sigmoid colon. Negative for abscess or rupture Pelvis: Physiologic ovarian cysts. Trace pelvic free fluid. Bones: No lytic or blastic bony lesions. Impression: 1. Moderate sigmoid diverticulitis. Negative for abscess or rupture. Reji Woodson Oct 01, 2019 12:49
--- NOTE | 2019-10-01 13:49 | NUR ---
CASE MANAGEMENT:REVIEW SI;ACUTE DIVERTICULITIS 100.0 85 19 106/73 95% ON RA WBC 17.2 K+ 3.2 CA 8.4 IS;ZOSYN IV Q8 HRS IVF NS @ 60 ML/HR K-DUR PO ONCE MED SURG STATUS DCP;FROM HOME
[2019-10-01 15:53] VITALS: BP 111/66
--- NOTE | 2019-10-01 16:03 | General Progress Note ---
Assessment/Plan Assessment/Plan: (1) Abdominal pain (2) Diverticulitis Patient will be continued on the Tylenol D/w Dr. James and concurred. Subjective Date patient seen: Oct 01, 2019 Time patient seen: 02:30 - pm Constitutional: Reports: fever HEENT: Reports: no symptoms Cardiovascular: Reports: no symptoms Respiratory: Reports: no symptoms Gastrointestinal/Abdominal: Reports: abdominal pain Genitourinary: Reports: no symptoms Neurologic/Psychiatric: Reports: no symptoms Endocrine: Reports: no symptoms Hematologic/Lymphatic: Reports: no symptoms Allergies: Coded Allergies: Dust (Verified Allergy, Mild, Itching, 09/29/19) Subjective Doing better Pain at mild level tolerated on the Tylenol Objective Last 24 Hour Vital Signs Date Time Temp Pulse Resp B/P (MAP) Pulse Ox O2 Delivery O2 Flow Rate FiO2 10/01/19 15:53 99.7 87 21 111/66 (81) 98 10/01/19 15:52 99.7 10/01/19 11:47 98.2 80 18 106/73 (84) 96 10/01/19 09:00 Room Air 10/01/19 08:00 99.1 85 18 113/69 (84) 95 10/01/19 04:00 100.2 82 19 113/63 (80) 10/01/19 00:00 99.1 78 18 100/61 (74) 09/30/19 21:00 Room Air 09/30/19 20:00 99.5 85 18 105/64 (78) Intake and Output 09/30/19 10/01/19 19:00 07:00 Intake Total 160 ml 797.5 ml Balance 160 ml 797.5 ml Intake Oral 100 ml 300 ml IV Total 60 ml 497.5 ml # Voids 3 3 Laboratory Tests 10/01/19 06:50: White Blood Count 17.0H, Red Blood Count 3.78L, Hemoglobin 12.2, Hematocrit 33.0L, Mean Corpuscular Volume 87, Mean Corpuscular Hemoglobin 32.1H, Mean Corpuscular Hemoglobin Concent 36.9H, Red Cell Distribution Width 11.3L, Platelet Count 366, Mean Platelet Volume 4.8L, Neutrophils (%) (Auto) 75.1H, Lymphocytes (%) (Auto) 17.6L, Monocytes (%) (Auto) 5.9, Eosinophils (%) (Auto) 0.7, Basophils (%) (Auto) 0.7, Differential Total Cells Counted 100, Neutrophils % (Manual) 82H, Lymphocytes % (Manual) 13L, Monocytes % (Manual) 2, Eosinophils % (Manual) 0, Basophils % (Manual) 0, Band Neutrophils 3, Nucleated Red Blood Cells 3, Platelet Estimate Adequate, Platelet Morphology Normal, Polychromasia 1+, Sodium Level 138, Potassium Level 3.2L, Chloride Level 101, Carbon Dioxide Level 27, Anion Gap 10, Blood Urea Nitrogen 6L, Creatinine 0.9, Estimat Glomerular Filtration Rate > 60, Glucose Level 95, Calcium Level 8.4L Height (Feet): 5 Height (Inches): 3.00 Weight (Pounds): 243 General Appearance: no apparent distress, alert EENT: PERRL/EOMI Neck: non-tender, normal alignment Cardiovascular: normal rate, regular rhythm Respiratory/Chest: lungs clear, normal breath sounds Abdomen: tender Extremities: non-tender Edema: no edema noted Generalized Neurologic: alert, oriented x 3 Stalin Cristobal Oct 01, 2019 16:03
--- NOTE | 2019-10-01 18:58 | NUR ---
HAND-OFF: Report given to Fide.
[2019-10-01 20:00] VITALS: BP 118/66
--- NOTE | 2019-10-01 21:16 | General Progress Note ---
Assessment/Plan Problem List: (1) Diverticulitis ICD Codes: K57.92 - Diverticulitis of intestine, part unspecified, without perforation or abscess without bleeding SNOMED: [id number] Status: progressing Assessment/Plan: afebrile low k diverticulitis abdominal pain no bleeding Subjective Allergies: Coded Allergies: Dust (Verified Allergy, Mild, Itching, 09/29/19) Objective Last 24 Hour Vital Signs Date Time Temp Pulse Resp B/P (MAP) Pulse Ox O2 Delivery O2 Flow Rate FiO2 10/01/19 15:53 99.7 87 21 111/66 (81) 98 10/01/19 15:52 99.7 10/01/19 11:47 98.2 80 18 106/73 (84) 96 10/01/19 09:00 Room Air 10/01/19 08:00 99.1 85 18 113/69 (84) 95 10/01/19 04:00 100.2 82 19 113/63 (80) 10/01/19 00:00 99.1 78 18 100/61 (74) Intake and Output 09/30/19 10/01/19 19:00 07:00 Intake Total 160 ml 797.5 ml Balance 160 ml 797.5 ml Intake Oral 100 ml 300 ml IV Total 60 ml 497.5 ml # Voids 3 3 Laboratory Tests 10/01/19 06:50: White Blood Count 17.0H, Red Blood Count 3.78L, Hemoglobin 12.2, Hematocrit 33.0L, Mean Corpuscular Volume 87, Mean Corpuscular Hemoglobin 32.1H, Mean Corpuscular Hemoglobin Concent 36.9H, Red Cell Distribution Width 11.3L, Platelet Count 366, Mean Platelet Volume 4.8L, Neutrophils (%) (Auto) 75.1H, Lymphocytes (%) (Auto) 17.6L, Monocytes (%) (Auto) 5.9, Eosinophils (%) (Auto) 0.7, Basophils (%) (Auto) 0.7, Differential Total Cells Counted 100, Neutrophils % (Manual) 82H, Lymphocytes % (Manual) 13L, Monocytes % (Manual) 2, Eosinophils % (Manual) 0, Basophils % (Manual) 0, Band Neutrophils 3, Nucleated Red Blood Cells 3, Platelet Estimate Adequate, Platelet Morphology Normal, Polychromasia 1+, Sodium Level 138, Potassium Level 3.2L, Chloride Level 101, Carbon Dioxide Level 27, Anion Gap 10, Blood Urea Nitrogen 6L, Creatinine 0.9, Estimat Glomerular Filtration Rate > 60, Glucose Level 95, Calcium Level 8.4L Height (Feet): 5 Height (Inches): 3.00 Weight (Pounds): 243 Abdomen: tender Dennise Zhao MD Oct 01, 2019 21:16
[2019-10-02] VITALS: BP 116/68
[2019-10-02 04:00] VITALS: BP 109/59
[2019-10-02] MEDS: Piperacillin/Tazobactam 3.375 GM in NS 110 ML IVPB SCH ×3 (05:15→21:47)
--- NOTE | 2019-10-02 07:15 | NUR ---
HAND-OFF: Report given to ANG Veliz.
--- NOTE | 2019-10-02 07:20 | NUR ---
NURSE NOTES: Received a pt awake,alert & oriented x4, verbally responsive. No acute cardio-resp distress noted. Iv site is patent and intact. IVF infusing well. abdomen distended and soft to touch. Bed in the lowest position, siderails are up x2. brakes locked and call light within reach. Will cont the plan of care.
[2019-10-02 08:00] VITALS: BP 111/69
--- NOTE | 2019-10-02 11:39 | Hematology/Onc Progress Note ---
Assessment/Plan Assessment/Plan # Leukocytosis with elev wbc since admission --> likely relarted to diverticulitis --> abx and ivfs per gi, id --> no surgical intervention per surg --> outpatient colo --> abx: zosyn # Abd pain due to diverticulitis --> fluids and pain management # Dehydration --> goal of euvolemia # Dvt ppx scds The timing of this note does not necessarily reflect the time of the patient was seen. Greatly appreciate consultation. Subjective Allergies: Coded Allergies: Dust (Verified Allergy, Mild, Itching, 09/29/19) Subjective / on abx, with ivfs, seen by gi, less abd pain 10/01 awake and alert, no events, on room air Objective Objective Current Medications Medications (Trade) Dose Ordered Sig/Belem Route PRN Reason Start Time Stop Time Status Last Admin Dose Admin Acetaminophen (Tylenol) 650 mg Q4H PRN ORAL mild pain 1-3/ temp>100.5 09/30/19 00:30 10/30/19 00:29 10/02/19 01:12 Ondansetron HCl (Zofran) 4 mg Q6H PRN IVP Nausea & Vomiting 09/30/19 00:30 10/30/19 00:29 09/30/19 08:51 Piperacillin Sod/ Tazobactam Sod 3.375 gm/Sodium Chloride 110 ml @ 27.5 mls/hr EVERY 8 HOURS IVPB 09/30/19 14:00 10/05/19 13:59 10/02/19 05:15 Sodium Chloride 1,000 ml @ 60 mls/hr [id number] IV 09/30/19 00:30 10/30/19 00:29 10/02/19 03:30 Last 24 Hour Vital Signs Date Time Temp Pulse Resp B/P (MAP) Pulse Ox O2 Delivery O2 Flow Rate FiO2 10/02/19 08:00 97.5 74 19 111/69 (83) 96 10/02/19 04:00 98.1 72 18 109/59 (76) 97 10/02/19 01:42 99.2 10/02/19 00:00 100.8 85 19 116/68 (84) 96 10/01/19 21:00 Room Air 10/01/19 20:00 98.1 80 19 118/66 (83) 96 10/01/19 15:53 99.7 87 21 111/66 (81) 98 10/01/19 11:47 98.2 80 18 106/73 (84) 96 10/01/19 09:00 Room Air 10/01/19 08:00 99.1 85 18 113/69 (84) 95 10/01/19 04:00 100.2 82 19 113/63 (80) 10/01/19 00:00 99.1 78 18 100/61 (74) 09/30/19 21:00 Room Air 09/30/19 20:00 99.5 85 18 105/64 (78) 09/30/19 16:00 99.8 88 19 105/63 (77) 09/30/19 12:00 98.8 80 18 100/62 (75) Intake and Output 10/01/19 10/02/19 19:00 07:00 Intake Total 1125.0 ml 750.0 ml Balance 1125.0 ml 750.0 ml Intake Oral 600 ml 400 ml IV Total 525.0 ml 350.0 ml # Voids 3 3 # Bowel Movements 2 Labs Test 09/29/19 18:50 09/30/19 07:10 10/01/19 06:50 White Blood Count 15.7 K/UL (4.8-10.8) 15.2 K/UL (4.8-10.8) 17.0 K/UL (4.8-10.8) Red Blood Count 4.38 M/UL (4.20-5.40) 3.95 M/UL (4.20-5.40) 3.78 M/UL (4.20-5.40) Hemoglobin 13.6 G/DL (12.0-16.0) 12.5 G/DL (12.0-16.0) 12.2 G/DL (12.0-16.0) Hematocrit 41.5 % (37.0-47.0) 34.7 % (37.0-47.0) 33.0 % (37.0-47.0) Mean Corpuscular Volume 95 FL (80-99) 88 FL (80-99) 87 FL (80-99) Mean Corpuscular Hemoglobin 31.0 PG (27.0-31.0) 31.6 PG (27.0-31.0) 32.1 PG (27.0-31.0) Mean Corpuscular Hemoglobin Concent 32.8 G/DL (32.0-36.0) 36.0 G/DL (32.0-36.0) 36.9 G/DL (32.0-36.0) Red Cell Distribution Width 12.8 % (11.6-14.8) 11.2 % (11.6-14.8) 11.3 % (11.6-14.8) Platelet Count 402 K/UL (150-450) 362 K/UL (150-450) 366 K/UL (150-450) Mean Platelet Volume 6.1 FL (6.5-10.1) 5.0 FL (6.5-10.1) 4.8 FL (6.5-10.1) Neutrophils (%) (Auto) 79.8 % (45.0-75.0) 74.0 % (45.0-75.0) 75.1 % (45.0-75.0) Lymphocytes (%) (Auto) 13.6 % (20.0-45.0) 18.3 % (20.0-45.0) 17.6 % (20.0-45.0) Monocytes (%) (Auto) 5.3 % (1.0-10.0) 6.6 % (1.0-10.0) 5.9 % (1.0-10.0) Eosinophils (%) (Auto) 0.5 % (0.0-3.0) 0.7 % (0.0-3.0) 0.7 % (0.0-3.0) Basophils (%) (Auto) 0.9 % (0.0-2.0) 0.5 % (0.0-2.0) 0.7 % (0.0-2.0) Urine Color Pale yellow Urine Appearance Clear Urine pH 8 (4.5-8.0) Urine Specific Star 1.010 (1.005-1.035) Urine Protein Negative (NEGATIVE) Urine Glucose (UA) Negative (NEGATIVE) Urine Ketones Negative (NEGATIVE) Urine Blood 1+ (NEGATIVE) Urine Nitrite Negative (NEGATIVE) Urine Bilirubin Negative (NEGATIVE) Urine Urobilinogen Normal MG/DL (0.0-1.0) Urine Leukocyte Esterase Negative (NEGATIVE) Urine RBC 0-2 /HPF (0 - 2) Urine WBC 0 /HPF (0 - 2) Urine Squamous Epithelial Cells Few /LPF (NONE/OCC) Urine Bacteria Few /HPF (NONE) Urine HCG, Qualitative Negative (NEGATIVE) Sodium Level 135 MMOL/L (136-145) 137 MMOL/L (136-145) 138 MMOL/L (136-145) Potassium Level 3.5 MMOL/L (3.5-5.1) 3.4 MMOL/L (3.5-5.1) 3.2 MMOL/L (3.5-5.1) Chloride Level 97 MMOL/L (98-107) 100 MMOL/L (98-107) 101 MMOL/L (98-107) Carbon Dioxide Level 28 MMOL/L (21-32) 28 MMOL/L (21-32) 27 MMOL/L (21-32) Anion Gap 10 mmol/L (5-15) 9 mmol/L (5-15) 10 mmol/L (5-15) Blood Urea Nitrogen 9 mg/dL (7-18) 10 mg/dL (7-18) 6 mg/dL (7-18) Creatinine 1.0 MG/DL (0.55-1.30) 0.9 MG/DL (0.55-1.30) 0.9 MG/DL (0.55-1.30) Estimat Glomerular Filtration Rate > 60 mL/min (>60) > 60 mL/min (>60) > 60 mL/min (>60) Glucose Level 114 MG/DL (74-106) 106 MG/DL (74-106) 95 MG/DL (74-106) Calcium Level 8.8 MG/DL (8.5-10.1) 8.2 MG/DL (8.5-10.1) 8.4 MG/DL (8.5-10.1) Total Bilirubin 0.8 MG/DL (0.2-1.0) 1.2 MG/DL (0.2-1.0) Aspartate Amino Transf (AST/SGOT) 14 U/L (15-37) 15 U/L (15-37) Alanine Aminotransferase (ALT/SGPT) 24 U/L (12-78) 16 U/L (12-78) Alkaline Phosphatase 92 U/L (46-116) 82 U/L (46-116) Total Protein 7.5 G/DL (6.4-8.2) 6.9 G/DL (6.4-8.2) Albumin 3.8 G/DL (3.4-5.0) 3.3 G/DL (3.4-5.0) Globulin 3.7 g/dL 3.6 g/dL Albumin/Globulin Ratio 1.0 (1.0-2.7) 0.9 (1.0-2.7) Lipase 129 U/L (73-393) Direct Bilirubin 0.2 MG/DL (0.0-0.3) Differential Total Cells Counted 100 Neutrophils % (Manual) 82 % (45-75) Lymphocytes % (Manual) 13 % (20-45) Monocytes % (Manual) 2 % (1-10) Eosinophils % (Manual) 0 % (0-3) Basophils % (Manual) 0 % (0-2) Band Neutrophils 3 % (0-8) Nucleated Red Blood Cells 3 /100 WBC Other Cell Type Pathologist review Platelet Estimate Adequate Platelet Morphology Normal Polychromasia 1+ Height (Feet): 5 Height (Inches): 3.00 Weight (Pounds): 246 Objective Gen: nad, alert and oriented Pulm ctab, no cwr CV rrr, no mgr Abd soft, nd ++ ttp to rlq and llq Ext no cce Luis Gongora MD Oct 02, 2019 11:39
[2019-10-02 11:51] VITALS: BP 111/72
--- NOTE | 2019-10-02 11:55 | Infectious Diseases Prog Note ---
Assessment/Plan Assessment/Plan IMPRESSION: 1. Sigmoid diverticulitis. 2. Morbid obesity. RECOMMENDATIONS: Continue Zosyn in hospital At time of discharge PO Flagyl & Cipro Subjective ROS Limited/Unobtainable: No Constitutional: Reports: fever, other - last night, Iu=669.8 Respiratory: Reports: no symptoms Cardiovascular: Reports: no symptoms Gastrointestinal/Abdominal: Reports: other - decreased abdominal pain Genitourinary: Reports: dysuria Neurologic: Reports: no symptoms Allergies: Coded Allergies: Dust (Verified Allergy, Mild, Itching, 09/29/19) Objective Vital Signs Last 24 Hour Vital Signs Date Time Temp Pulse Resp B/P (MAP) Pulse Ox O2 Delivery O2 Flow Rate FiO2 10/02/19 11:51 98.2 70 17 111/72 (85) 99 10/02/19 08:00 97.5 74 19 111/69 (83) 96 10/02/19 04:00 98.1 72 18 109/59 (76) 97 10/02/19 01:42 99.2 10/02/19 00:00 100.8 85 19 116/68 (84) 96 10/01/19 21:00 Room Air 10/01/19 20:00 98.1 80 19 118/66 (83) 96 10/01/19 15:53 99.7 87 21 111/66 (81) 98 Height (Feet): 5 Height (Inches): 3.00 Weight (Pounds): 246 General Appearance: no acute distress HEENT: mucous membranes moist Respiratory/Chest: lungs clear Cardiovascular: normal rate Abdomen: other - soft, mildly tender Extremities: no edema Neurologic/Psychiatric: alert, oriented x 3, responsive Current Medications Medications (Trade) Dose Ordered Sig/Belem Route PRN Reason Start Time Stop Time Status Last Admin Dose Admin Acetaminophen (Tylenol) 650 mg Q4H PRN ORAL mild pain 1-3/ temp>100.5 09/30/19 00:30 10/30/19 00:29 10/02/19 01:12 Ondansetron HCl (Zofran) 4 mg Q6H PRN IVP Nausea & Vomiting 09/30/19 00:30 10/30/19 00:29 09/30/19 08:51 Piperacillin Sod/ Tazobactam Sod 3.375 gm/Sodium Chloride 110 ml @ 27.5 mls/hr EVERY 8 HOURS IVPB 09/30/19 14:00 10/05/19 13:59 10/02/19 05:15 Sodium Chloride 1,000 ml @ 60 mls/hr [id number] IV 09/30/19 00:30 10/30/19 00:29 10/02/19 03:30 Guillaume Todd MD Oct 02, 2019 11:55
--- NOTE | 2019-10-02 12:21 | General Progress Note ---
Assessment/Plan Problem List: (1) Diverticulitis ICD Codes: K57.92 - Diverticulitis of intestine, part unspecified, without perforation or abscess without bleeding SNOMED: 209331238 Status: progressing Assessment/Plan: abx ivf pain control advance diet to gi soft needs out patient colonoscopy in 8 weeks Subjective ROS Limited/Unobtainable: Yes Allergies: Coded Allergies: Dust (Verified Allergy, Mild, Itching, 09/29/19) Objective Last 24 Hour Vital Signs Date Time Temp Pulse Resp B/P (MAP) Pulse Ox O2 Delivery O2 Flow Rate FiO2 10/02/19 11:51 98.2 70 17 111/72 (85) 99 10/02/19 08:00 97.5 74 19 111/69 (83) 96 10/02/19 04:00 98.1 72 18 109/59 (76) 97 10/02/19 01:42 99.2 10/02/19 00:00 100.8 85 19 116/68 (84) 96 10/01/19 21:00 Room Air 10/01/19 20:00 98.1 80 19 118/66 (83) 96 10/01/19 15:53 99.7 87 21 111/66 (81) 98 Intake and Output 10/01/19 10/02/19 19:00 07:00 Intake Total 1125.0 ml 750.0 ml Balance 1125.0 ml 750.0 ml Intake Oral 600 ml 400 ml IV Total 525.0 ml 350.0 ml # Voids 3 3 # Bowel Movements 2 Height (Feet): 5 Height (Inches): 3.00 Weight (Pounds): 246 General Appearance: alert EENT: normal ENT inspection Neck: supple Cardiovascular: normal rate Respiratory/Chest: decreased breath sounds Abdomen: soft, hypoactive bowel sounds Extremities: non-tender Nicolás Bunn MD Oct 02, 2019 12:21
--- NOTE | 2019-10-02 13:06 | NUR ---
*-* INSURANCE *-* UPDATED CLINICALS AND REVIEW HAVE BEEN FAXED: NAZIA PLUNKETT #[phone] FAX#[phone] REVIEWS/CLINICALS
--- NOTE | 2019-10-02 13:34 | General Progress Note ---
Assessment/Plan Assessment/Plan: (1) Abdominal pain (2) Diverticulitis Patient will be continued on the Tylenol D/w Dr. James and concurred. Subjective Date patient seen: Oct 02, 2019 Time patient seen: 01:15 - pm Allergies: Coded Allergies: Dust (Verified Allergy, Mild, Itching, 09/29/19) Subjective Constitutional: Reports: fever HEENT: Reports: no symptoms Cardiovascular: Reports: no symptoms Respiratory: Reports: no symptoms Gastrointestinal/Abdominal: Reports: abdominal pain Genitourinary: Reports: no symptoms Neurologic/Psychiatric: Reports: no symptoms Endocrine: Reports: no symptoms Hematologic/Lymphatic: Reports: no symptoms Subjective Pain has been stable. Using the Tylenol as needed No new complaints at this time. Objective Last 24 Hour Vital Signs Date Time Temp Pulse Resp B/P (MAP) Pulse Ox O2 Delivery O2 Flow Rate FiO2 10/02/19 11:51 98.2 70 17 111/72 (85) 99 10/02/19 08:00 97.5 74 19 111/69 (83) 96 10/02/19 04:00 98.1 72 18 109/59 (76) 97 10/02/19 01:42 99.2 10/02/19 00:00 100.8 85 19 116/68 (84) 96 10/01/19 21:00 Room Air 10/01/19 20:00 98.1 80 19 118/66 (83) 96 10/01/19 15:53 99.7 87 21 111/66 (81) 98 Intake and Output 10/01/19 10/02/19 19:00 07:00 Intake Total 1125.0 ml 750.0 ml Balance 1125.0 ml 750.0 ml Intake Oral 600 ml 400 ml IV Total 525.0 ml 350.0 ml # Voids 3 3 # Bowel Movements 2 Height (Feet): 5 Height (Inches): 3.00 Weight (Pounds): 246 Objective General Appearance: no apparent distress, alert EENT: PERRL/EOMI Neck: non-tender, normal alignment Cardiovascular: normal rate, regular rhythm Respiratory/Chest: lungs clear, normal breath sounds Abdomen: tender Extremities: non-tender Edema: no edema noted Generalized Neurologic: alert, oriented x 3 Stalin Cristobal Oct 02, 2019 13:34
--- NOTE | 2019-10-02 13:47 | CDS Physician Query ---
Clarification is required for compliance, coding accuracy, and to reflect severity of illness for this patient Dear Dr. Guillaume Todd Date: 10/02/2019 CDS name: Kavita Hoffmann Clinical documentation: HNP: Patient is admitted for abdominal pain, found to have also leukocytosis and found to have diverticulitis Vitals/labs on admit: WBC 15.7, HR 110, Temp 99.9, RR 17 Treatment: IV pip-tazo, ciprofloxacin (dced), metronidazole (dced) According to the clinical indications above, please indicate below the condition PHYSICIAN RESPONSE: [] Sepsis [] SIRS [] SIRS with organ dysfunction [] Septic Shock [] Not applicable [] Other: Present on Admission: Yes No Clinically Undetermined Physician signature Date Please also document in your Progress Notes and/or Discharge Summary and indicate if the condition was present on admission. MTDD
--- NOTE | 2019-10-02 13:53 | NUR ---
CASE MANAGEMENT:REVIEW SI;DIVERTICULITIS. LEUKOCYTOSIS. HYPOKALEMIA. 100.4 85 19 109/59 96% ON RA IS;ZOSYN IV Q8 HRS IVF NS @ 60 ML/HR ZOFRAN IV Q6 HRS PORN MED SURG STATUS DCP;PATIENT IS FROM HOME PLAN;OUTPATIENT COLONOSCOPY IN 8 WEEKS
[2019-10-02 16:00] VITALS: BP 113/73
--- NOTE | 2019-10-02 18:53 | NUR ---
HAND-OFF: Report given to
--- NOTE | 2019-10-02 19:05 | NUR ---
NURSE NOTES: Received report from paulette alfred. patient on bed, awake and verbally responsive. room air. no sob. with iv line on the left ac running 1/2 ns @ 60 ml/hr. ambulates. denies any pain or discomfort. reiterated to call using call light for assistance. bed locked and in lowest position. call light and light button within easy reach. will continue plan of care.
[2019-10-02 20:00] VITALS: BP 115/75
--- NOTE | 2019-10-02 21:06 | Surgery Progress Note ---
Surgery Progress Note Subjective Symptoms: improved, tolerating diet, voiding well, passing flatus, BM, pain decreased Objective Last 24 Hour Vital Signs Date Time Temp Pulse Resp B/P (MAP) Pulse Ox O2 Delivery O2 Flow Rate FiO2 10/02/19 16:00 98.2 83 18 113/73 (86) 95 10/02/19 11:51 98.2 70 17 111/72 (85) 99 10/02/19 09:00 Room Air 10/02/19 08:00 97.5 74 19 111/69 (83) 96 10/02/19 04:00 98.1 72 18 109/59 (76) 97 10/02/19 01:42 99.2 10/02/19 00:00 100.8 85 19 116/68 (84) 96 I&O Intake and Output 10/01/19 10/02/19 19:00 07:00 Intake Total 1125.0 ml 750.0 ml Balance 1125.0 ml 750.0 ml Intake Oral 600 ml 400 ml IV Total 525.0 ml 350.0 ml # Voids 3 3 # Bowel Movements 2 1 Cardiovascular: RSR Respiratory: clear Abdomen: soft, non-tender, present bowel sounds Extremities: no edema, no tenderness, no cyanosis Plan Problems: (1) Diverticulitis Assessment & Plan: 28-year-old female with obesity presenting with what seemingly to be her second episode of acute diverticulitis. Low-grade fevers, leukocytosis, CT with diverticulitis no perforation no abscess. Nominal exam with discomfort and tenderness in left lower quadrant pelvic region. No acute abdomen. No acute surgical intervention currently planned. Recommend conservative medical management of acute uncomplicated diverticulitis. Given patient's age severity and history there is a possibility of worsening but hopefully she will Improved with medical management. I had a long discussion with the patient regards her care and care plan. I explained to her in detail what diverticulitis is its etiology and its potential prognosis and future course. I explained to the patient the necessity to have healthy diet exercise and weight maintenance and follow-up. She expressed understanding. For now recommend n.p.o. bowel rest IV fluids IV antibiotics trail diet transition abx to oral for d/c planning Will follow with serial abdominal examinations thank you for let me participate in patient's care Findings: Lung bases: Normal Distal heart and esophagus: Moderate hiatal hernia. Liver: No intrahepatic lesion or ductal dilation. Gallbladder: Normal Spleen: Normal Pancreas: Normal Adrenals: Normal Kidneys: Negative for hydronephrosis or stones. Retroperitoneum: Normal caliber of the aorta. Shotty retroperitoneal lymphadenopathy. Bowel: Normal appendix. Mild transverse colon, moderate left sided and sigmoid diverticulosis. Moderate sigmoid diverticulitis with streakiness in the fat around the sigmoid colon. Negative for abscess or rupture Pelvis: Physiologic ovarian cysts. Trace pelvic free fluid. Bones: No lytic or blastic bony lesions. Impression: 1. Moderate sigmoid diverticulitis. Negative for abscess or rupture. Reji Woodson Oct 02, 2019 21:06
--- NOTE | 2019-10-02 21:16 | General Progress Note ---
Assessment/Plan Problem List: (1) Diverticulitis ICD Codes: K57.92 - Diverticulitis of intestine, part unspecified, without perforation or abscess without bleeding SNOMED: 586456918 Status: progressing Assessment/Plan: reviewed chart and labs low k diverticulitis improving abdominal pain Subjective ROS Limited/Unobtainable: Yes Allergies: Coded Allergies: Dust (Verified Allergy, Mild, Itching, 09/29/19) Objective Last 24 Hour Vital Signs Date Time Temp Pulse Resp B/P (MAP) Pulse Ox O2 Delivery O2 Flow Rate FiO2 10/02/19 16:00 98.2 83 18 113/73 (86) 95 10/02/19 11:51 98.2 70 17 111/72 (85) 99 10/02/19 09:00 Room Air 10/02/19 08:00 97.5 74 19 111/69 (83) 96 10/02/19 04:00 98.1 72 18 109/59 (76) 97 10/02/19 01:42 99.2 10/02/19 00:00 100.8 85 19 116/68 (84) 96 Intake and Output 10/01/19 10/02/19 19:00 07:00 Intake Total 1125.0 ml 750.0 ml Balance 1125.0 ml 750.0 ml Intake Oral 600 ml 400 ml IV Total 525.0 ml 350.0 ml # Voids 3 3 # Bowel Movements 2 1 Height (Feet): 5 Height (Inches): 3.00 Weight (Pounds): 246 Dennise Zhao MD Oct 02, 2019 21:16
[2019-10-03] VITALS: BP 112/73
[2019-10-03 04:00] VITALS: BP 117/71
[2019-10-03] MEDS: Piperacillin/Tazobactam 3.375 GM in NS 110 ML IVPB SCH ×2 (05:13→14:00)
[2019-10-03 06:27] LABS: BASOPHILS % (AUTO) 0.7 % (0.0-2.0); EOSINOPHILS % (AUTO) 4.1 % (0.0-3.0); HEMATOCRIT 35.6 % (37.0-47.0); HEMOGLOBIN 12.5 G/DL (12.0-16.0); LYMPHOCYTES % (AUTO) 35.2 % (20.0-45.0); MEAN CORPUSCULAR VOLUME 89 FL (80-99); MONOCYTES % (AUTO) 5.4 % (1.0-10.0); NEUTROPHILS % (AUTO) 54.6 % (45.0-75.0); PLATELET COUNT 446 K/UL (150-450); RED CELL DISTRIBUTION WIDTH 11.6 % (11.6-14.8); WHITE BLOOD COUNT 9.4 K/UL (4.8-10.8)
[2019-10-03 07:02] LABS: ANION GAP 10 mmol/L (5-15); BLOOD UREA NITROGEN 7 mg/dL (7-18); CALCIUM 8.9 MG/DL (8.5-10.1); CARBON DIOXIDE 27 MMOL/L (21-32); CHLORIDE 103 MMOL/L (98-107); CREATININE 0.9 MG/DL (0.55-1.30); POTASSIUM 3.7 MMOL/L (3.5-5.1); SODIUM 140 MMOL/L (136-145)
--- NOTE | 2019-10-03 07:20 | NUR ---
NURSE NOTES: Received patient in bed. Awake, A/O x4. On room air. Patient denies pain. No signs of distress noted. Bed low and locked.
--- NOTE | 2019-10-03 07:25 | NUR ---
HAND-OFF: Report given to sumi leslie. patient is stable. not in any form of respiratory distress. plan of care endorsed..
[2019-10-03 08:00] VITALS: BP 117/60
--- NOTE | 2019-10-03 09:56 | General Progress Note ---
Assessment/Plan Problem List: (1) Diverticulitis ICD Codes: K57.92 - Diverticulitis of intestine, part unspecified, without perforation or abscess without bleeding SNOMED: 196344563 Status: progressing Assessment/Plan: abx ivf pain control on reg diet needs out patient colonoscopy in 8 weeks Subjective ROS Limited/Unobtainable: No Allergies: Coded Allergies: Dust (Verified Allergy, Mild, Itching, 09/29/19) Objective Last 24 Hour Vital Signs Date Time Temp Pulse Resp B/P (MAP) Pulse Ox O2 Delivery O2 Flow Rate FiO2 10/03/19 09:00 Room Air 10/03/19 08:00 98.2 69 18 117/60 (79) 95 10/03/19 04:00 98.2 79 18 117/71 (86) 97 10/03/19 00:00 97.8 81 18 112/73 (86) 98 10/02/19 21:00 Room Air 10/02/19 20:00 97.9 80 18 115/75 (88) 96 10/02/19 16:00 98.2 83 18 113/73 (86) 95 10/02/19 11:51 98.2 70 17 111/72 (85) 99 Intake and Output 10/02/19 10/03/19 19:00 07:00 Intake Total 1185.0 ml 770.0 ml Balance 1185.0 ml 770.0 ml Intake Oral 720 ml 600 ml IV Total 465.0 ml 170.0 ml # Voids 3 3 # Bowel Movements 1 Laboratory Tests 10/03/19 05:10: White Blood Count 9.4, Red Blood Count 4.00L, Hemoglobin 12.5, Hematocrit 35.6L , Mean Corpuscular Volume 89, Mean Corpuscular Hemoglobin 31.2H, Mean Corpuscular Hemoglobin Concent 35.0, Red Cell Distribution Width 11.6, Platelet Count 446, Mean Platelet Volume 4.7L, Neutrophils (%) (Auto) 54.6, Lymphocytes ( %) (Auto) 35.2, Monocytes (%) (Auto) 5.4, Eosinophils (%) (Auto) 4.1H, Basophils (%) (Auto) 0.7, Sodium Level 140, Potassium Level 3.7, Chloride Level 103, Carbon Dioxide Level 27, Anion Gap 10, Blood Urea Nitrogen 7, Creatinine 0.9, Estimat Glomerular Filtration Rate > 60, Glucose Level 93, Calcium Level 8.9 Height (Feet): 5 Height (Inches): 3.00 Weight (Pounds): 246 General Appearance: no apparent distress EENT: normal ENT inspection Neck: supple Cardiovascular: normal rate Respiratory/Chest: decreased breath sounds Abdomen: normal bowel sounds, non tender, soft Extremities: non-tender Nicolás Bunn MD Oct 03, 2019 09:56
[2019-10-03 12:00] VITALS: BP 125/77
--- NOTE | 2019-10-03 13:07 | NUR ---
*-* INSURANCE *-* UPDATED CLINICALS AND REVIEW HAVE BEEN FAXED: [facility]ZIA PLUNKETT #[phone] FAX#[phone] REVIEWS/CLINICALS
--- NOTE | 2019-10-03 13:49 | General Progress Note ---
Assessment/Plan Problem List: (1) Diverticulitis ICD Codes: K57.92 - Diverticulitis of intestine, part unspecified, without perforation or abscess without bleeding SNOMED: [id number] Status: progressing Assessment/Plan: diverticulitis improving dc if ok w dr del rio and dr bergman see dc summary Subjective ROS Limited/Unobtainable: Yes Allergies: Coded Allergies: Dust (Verified Allergy, Mild, Itching, 09/29/19) Objective Last 24 Hour Vital Signs Date Time Temp Pulse Resp B/P (MAP) Pulse Ox O2 Delivery O2 Flow Rate FiO2 10/03/19 12:00 98.2 74 18 125/77 (93) 97 10/03/19 09:00 Room Air 10/03/19 08:00 98.2 69 18 117/60 (79) 95 10/03/19 04:00 98.2 79 18 117/71 (86) 97 10/03/19 00:00 97.8 81 18 112/73 (86) 98 10/02/19 21:00 Room Air 10/02/19 20:00 97.9 80 18 115/75 (88) 96 10/02/19 16:00 98.2 83 18 113/73 (86) 95 Intake and Output 10/02/19 10/03/19 18:59 06:59 Intake Total 1185.0 ml 770.0 ml Balance 1185.0 ml 770.0 ml Intake Oral 720 ml 600 ml IV Total 465.0 ml 170.0 ml # Voids 3 3 # Bowel Movements 1 1 Laboratory Tests 10/03/19 05:10: White Blood Count 9.4, Red Blood Count 4.00L, Hemoglobin 12.5, Hematocrit 35.6L , Mean Corpuscular Volume 89, Mean Corpuscular Hemoglobin 31.2H, Mean Corpuscular Hemoglobin Concent 35.0, Red Cell Distribution Width 11.6, Platelet Count 446, Mean Platelet Volume 4.7L, Neutrophils (%) (Auto) 54.6, Lymphocytes ( %) (Auto) 35.2, Monocytes (%) (Auto) 5.4, Eosinophils (%) (Auto) 4.1H, Basophils (%) (Auto) 0.7, Sodium Level 140, Potassium Level 3.7, Chloride Level 103, Carbon Dioxide Level 27, Anion Gap 10, Blood Urea Nitrogen 7, Creatinine 0.9, Estimat Glomerular Filtration Rate > 60, Glucose Level 93, Calcium Level 8.9 Height (Feet): 5 Height (Inches): 3.00 Weight (Pounds): 246 Dennise Zhao MD Oct 03, 2019 13:49
--- NOTE | 2019-10-03 14:05 | Infectious Diseases Prog Note ---
Assessment/Plan Assessment/Plan IMPRESSION: 1. Sigmoid diverticulitis. 2. Morbid obesity. RECOMMENDATIONS: Can be discharged PO Jai & Zeyad Case was D/W RN Subjective ROS Limited/Unobtainable: No Respiratory: Reports: no symptoms Cardiovascular: Reports: no symptoms Gastrointestinal/Abdominal: Reports: other - decreased abdominal pain Genitourinary: Reports: no symptoms Allergies: Coded Allergies: Dust (Verified Allergy, Mild, Itching, 09/29/19) Objective Vital Signs Last 24 Hour Vital Signs Date Time Temp Pulse Resp B/P (MAP) Pulse Ox O2 Delivery O2 Flow Rate FiO2 10/03/19 12:00 98.2 74 18 125/77 (93) 97 10/03/19 09:00 Room Air 10/03/19 08:00 98.2 69 18 117/60 (79) 95 10/03/19 04:00 98.2 79 18 117/71 (86) 97 10/03/19 00:00 97.8 81 18 112/73 (86) 98 10/02/19 21:00 Room Air 10/02/19 20:00 97.9 80 18 115/75 (88) 96 10/02/19 16:00 98.2 83 18 113/73 (86) 95 Height (Feet): 5 Height (Inches): 3.00 Weight (Pounds): 246 General Appearance: no acute distress HEENT: mucous membranes moist Respiratory/Chest: lungs clear Cardiovascular: normal rate Abdomen: soft, non tender Extremities: no edema, other - infiltration of IV site in left arm Laboratory Tests Test 10/03/19 05:10 White Blood Count 9.4 K/UL (4.8-10.8) Red Blood Count 4.00 M/UL (4.20-5.40) L Hemoglobin 12.5 G/DL (12.0-16.0) Hematocrit 35.6 % (37.0-47.0) L Mean Corpuscular Volume 89 FL (80-99) Mean Corpuscular Hemoglobin 31.2 PG (27.0-31.0) H Mean Corpuscular Hemoglobin Concent 35.0 G/DL (32.0-36.0) Red Cell Distribution Width 11.6 % (11.6-14.8) Platelet Count 446 K/UL (150-450) Mean Platelet Volume 4.7 FL (6.5-10.1) L Neutrophils (%) (Auto) 54.6 % (45.0-75.0) Lymphocytes (%) (Auto) 35.2 % (20.0-45.0) Monocytes (%) (Auto) 5.4 % (1.0-10.0) Eosinophils (%) (Auto) 4.1 % (0.0-3.0) H Basophils (%) (Auto) 0.7 % (0.0-2.0) Sodium Level 140 MMOL/L (136-145) Potassium Level 3.7 MMOL/L (3.5-5.1) Chloride Level 103 MMOL/L (98-107) Carbon Dioxide Level 27 MMOL/L (21-32) Anion Gap 10 mmol/L (5-15) Blood Urea Nitrogen 7 mg/dL (7-18) Creatinine 0.9 MG/DL (0.55-1.30) Estimat Glomerular Filtration Rate > 60 mL/min (>60) Glucose Level 93 MG/DL (74-106) Calcium Level 8.9 MG/DL (8.5-10.1) Current Medications Medications (Trade) Dose Ordered Sig/[place] Route PRN Reason Start Time Stop Time Status Last Admin Dose Admin Acetaminophen (Tylenol) 650 mg Q4H PRN ORAL mild pain 1-3/ temp>100.5 09/30/19 00:30 10/30/19 00:29 10/02/19 01:12 Ondansetron HCl (Zofran) 4 mg Q6H PRN IVP Nausea & Vomiting 09/30/19 00:30 10/30/19 00:29 09/30/19 08:51 Piperacillin Sod/ Tazobactam Sod 3.375 gm/Sodium Chloride 110 ml @ 27.5 mls/hr EVERY 8 HOURS IVPB 09/30/19 14:00 10/05/19 13:59 10/03/19 05:13 Sodium Chloride 1,000 ml @ 60 mls/hr [id number] IV 09/30/19 00:30 10/30/19 00:29 10/02/19 20:00 Guillaume Todd MD Oct 03, 2019 14:05
--- NOTE | 2019-10-03 14:05 | NUR ---
NURSE NOTES: 1400 IV antibiotics non-administered d/t patient removed IV line.
--- NOTE | 2019-10-03 14:43 | NUR ---
NURSE NOTES: Patient d/c to home via family member vehicle. Patient stable, VSS. Belongings list verified, ID band removed, IV site removed.
--- NOTE | 2019-10-03 15:01 | Hematology/Onc Progress Note ---
Assessment/Plan Assessment/Plan # Leukocytosis with elev wbc since admission --> likely relarted to diverticulitis --> abx and ivfs per gi, id --> no surgical intervention per surg --> outpatient colo --> abx: zosyn # Abd pain due to diverticulitis --> fluids and pain management # Dehydration --> goal of euvolemia # Dvt ppx scds The timing of this note does not necessarily reflect the time of the patient was seen. Greatly appreciate consultation. Subjective HEENT: Denies: no symptoms, eye pain, blurred vision, tearing, double vision, ear pain, ear discharge, nose pain, nose congestion, throat pain, throat swelling, mouth pain, mouth swelling, other Cardiovascular: Denies: no symptoms, chest pain, edema, irregular heart rate, lightheadedness, palpitations, syncope, other Respiratory: Denies: no symptoms, cough, shortness of breath, SOB with excertion, SOB at rest, sputum, wheezing, other Gastrointestinal/Abdominal: Denies: no symptoms, abdomen distended, abdominal pain, black stools, tarry stools, blood in stool, constipated, diarrhea, difficulty swallowing, nausea, poor appetite, poor fluid intake, rectal bleeding , vomiting, other Genitourinary: Denies: no symptoms, burning, discharge, frequency, flank pain, hematuria, incontinence, pain, urgency, other Neurologic/Psychiatric: Denies: no symptoms, anxiety, depressed, emotional problems, headache, numbness, paresthesia, pre-existing deficit, seizure, tingling, tremors, weakness, other Endocrine: Denies: no symptoms, excessive sweating, flushing, intolerance to cold, intolerance to heat, increased hunger, increased thirst, increased urine, unexplained weight gain, unexplained weight loss, other Hematologic/Lymphatic: Denies: no symptoms, anemia, easy bleeding, easy bruising, adenopathy, other Allergies: Coded Allergies: Dust (Verified Allergy, Mild, Itching, 09/29/19) Subjective 6/2 on abx, with ivfs, seen by gi, less abd pain 10/01 awake and alert, no events, on room air 10/02 is for potential dc, is feeling much better Objective Objective Last 24 Hour Vital Signs Date Time Temp Pulse Resp B/P (MAP) Pulse Ox O2 Delivery O2 Flow Rate FiO2 10/03/19 12:00 98.2 74 18 125/77 (93) 97 10/03/19 09:00 Room Air 10/03/19 08:00 98.2 69 18 117/60 (79) 95 10/03/19 04:00 98.2 79 18 117/71 (86) 97 10/03/19 00:00 97.8 81 18 112/73 (86) 98 10/02/19 21:00 Room Air 10/02/19 20:00 97.9 80 18 115/75 (88) 96 10/02/19 16:00 98.2 83 18 113/73 (86) 95 10/02/19 11:51 98.2 70 17 111/72 (85) 99 10/02/19 09:00 Room Air 10/02/19 08:00 97.5 74 19 111/69 (83) 96 10/02/19 04:00 98.1 72 18 109/59 (76) 97 10/02/19 01:42 99.2 10/02/19 00:00 100.8 85 19 116/68 (84) 96 10/01/19 21:00 Room Air 10/01/19 20:00 98.1 80 19 118/66 (83) 96 10/01/19 15:53 99.7 87 21 111/66 (81) 98 Intake and Output 10/02/19 10/03/19 18:59 06:59 Intake Total 1185.0 ml 770.0 ml Balance 1185.0 ml 770.0 ml Intake Oral 720 ml 600 ml IV Total 465.0 ml 170.0 ml # Voids 3 3 # Bowel Movements 1 1 Labs Test 10/01/19 06:50 10/03/19 05:10 White Blood Count 17.0 K/UL (4.8-10.8) 9.4 K/UL (4.8-10.8) Red Blood Count 3.78 M/UL (4.20-5.40) 4.00 M/UL (4.20-5.40) Hemoglobin 12.2 G/DL (12.0-16.0) 12.5 G/DL (12.0-16.0) Hematocrit 33.0 % (37.0-47.0) 35.6 % (37.0-47.0) Mean Corpuscular Volume 87 FL (80-99) 89 FL (80-99) Mean Corpuscular Hemoglobin 32.1 PG (27.0-31.0) 31.2 PG (27.0-31.0) Mean Corpuscular Hemoglobin Concent 36.9 G/DL (32.0-36.0) 35.0 G/DL (32.0-36.0) Red Cell Distribution Width 11.3 % (11.6-14.8) 11.6 % (11.6-14.8) Platelet Count 366 K/UL (150-450) 446 K/UL (150-450) Mean Platelet Volume 4.8 FL (6.5-10.1) 4.7 FL (6.5-10.1) Neutrophils (%) (Auto) 75.1 % (45.0-75.0) 54.6 % (45.0-75.0) Lymphocytes (%) (Auto) 17.6 % (20.0-45.0) 35.2 % (20.0-45.0) Monocytes (%) (Auto) 5.9 % (1.0-10.0) 5.4 % (1.0-10.0) Eosinophils (%) (Auto) 0.7 % (0.0-3.0) 4.1 % (0.0-3.0) Basophils (%) (Auto) 0.7 % (0.0-2.0) 0.7 % (0.0-2.0) Differential Total Cells Counted 100 Neutrophils % (Manual) 82 % (45-75) Lymphocytes % (Manual) 13 % (20-45) Monocytes % (Manual) 2 % (1-10) Eosinophils % (Manual) 0 % (0-3) Basophils % (Manual) 0 % (0-2) Band Neutrophils 3 % (0-8) Nucleated Red Blood Cells 3 /100 WBC Other Cell Type Pathologist review Platelet Estimate Adequate Platelet Morphology Normal Polychromasia 1+ Sodium Level 138 MMOL/L (136-145) 140 MMOL/L (136-145) Potassium Level 3.2 MMOL/L (3.5-5.1) 3.7 MMOL/L (3.5-5.1) Chloride Level 101 MMOL/L (98-107) 103 MMOL/L (98-107) Carbon Dioxide Level 27 MMOL/L (21-32) 27 MMOL/L (21-32) Anion Gap 10 mmol/L (5-15) 10 mmol/L (5-15) Blood Urea Nitrogen 6 mg/dL (7-18) 7 mg/dL (7-18) Creatinine 0.9 MG/DL (0.55-1.30) 0.9 MG/DL (0.55-1.30) Estimat Glomerular Filtration Rate > 60 mL/min (>60) > 60 mL/min (>60) Glucose Level 95 MG/DL (74-106) 93 MG/DL (74-106) Calcium Level 8.4 MG/DL (8.5-10.1) 8.9 MG/DL (8.5-10.1) Height (Feet): 5 Height (Inches): 3.00 Weight (Pounds): 246 Objective Gen: nad, alert and oriented Pulm ctab, no cwr CV rrr, no mgr Abd soft, nd ++ ttp to rlq and llq Ext no cce Luis Gongora MD Oct 03, 2019 15:01
--- NOTE | 2019-10-04 13:19 | NUR ---
*-* INSURANCE *-* UPDATED CLINICALS FAXED ( NO DISCHARGE SUMMARY IN THE SYSTEM) TO: [facility] #[phone] FAX#[phone] REVIEWS/CLINICALS
--- NOTE | 2019-10-07 10:56 | NUR ---
*-* NO DISCHARGE SUMMARY IN THE SYSTEM UNABLE TO SEND TO INS CO. *-*
--- NOTE | 2019-10-07 11:49 | Discharge Summary ---
Discharge Summary Discharge Summary _ DATE OF ADMISSION: 09/29/2019 DATE OF DISCHARGE: 10/03/2019 DISCHARGED BY: Dr. Zhao REASON FOR ADMISSION: 28 years old morbidly obese female presented for evaluation of lower abdominal pain for one day. Pain reported as sharp, localized in the right lower abdominal quadrant , 7 out of 10. She noted nausea but no vomiting. She denied diarrhea. No fever, no chills. Upon evaluation patient was tachycardic with heart rate 110 and fever 99.9. Laboratory work-up revealed leukocytosis WBC 15.7, stable hemoglobin , hematocrit and platelet count. Urinalysis revealed no evidence of urinary tract infection. Urine test was negative. Stable electrolytes and renal parameters. Glucose 114. Stable LFT and lipase. CT of the abdomen and pelvis revealed moderate sigmoid diverticulitis. No evidence of abscess or rupture. In emergency department patient received empiric antibiotic, IV fluids analgesics and admitted for further management. CONSULTANTS: ID specialist Dr. Guillaume Todd GI specialist Dr. Bnun surgery Dr. Woodson wax bleacher/oncologist Dr. Gongora pain specialist Dr. Jiménez [facility] COURSE: Patient admitted to medical surgical floor. Patient started on IV fluids empiric antibiotic as per ID specialist recommendation for diverticulitis. Surgeon seen and evaluated patient , and initially recommended n.p.o., bowel rest, IV fluids and IV antibiotic and transition antibiotic to oral upon discharge. No need for any surgical intervention at this time. Pain management was addressed as per pain specialist recommendation. Antiemetic provided as needed. Antibiotics continued. Fever and leukocytosis resolved. Patient will need to continue oral antibiotic upon discharge to complete the course. Diet was advanced as tolerated. Patient was able to tolerate diet. Patient was able to tolerate diet. Patient will require outpatient colonoscopy in 8 weeks as per GI specialist recommendation. Renal parameters and electrolytes were closely monitored. Potassium was replaced. Renal parameters remained stable. Patient clinically stabilized and was ready for discharge home. FINAL DIAGNOSES: Sepsis Sigmoid diverticulitis Morbid obesity with BNI 43.6 Dehydration DISCHARGE MEDICATIONS: See Medication Reconciliation list. DISCHARGE INSTRUCTIONS: Patient was discharged home. Follow-up with primary care provider in 1 to 2 weeks. Patient was advised that she needs colonoscopy in 8 weeks. I have been assigned to dictate discharge summary for this account. I was not involved in the patient's management. Riddhi Ott NP Oct 07, 2019 11:49
--- NOTE | 2019-10-08 14:28 | NUR ---
*-* INSURANCE *-* DISCHARGE SUMMARY HAS BEEN FAXED TO: [facility] #[phone] FAX#[phone] REVIEWS/CLINICALS
== END 2019-10-03 14:40 | disposition home or self-care (01) | DRG 720 ==
LOC: EMR 18:34 → 4E 21:25 → EDBEDREQ 22:06
DX: A41.9 Sepsis, unspecified organism (principal); K57.32 Diverticulitis of large intestine without perforation or abscess without bleeding; E66.01 Morbid (severe) obesity due to excess calories; Z68.41 Body mass index [BMI] 40.0-44.9, adult; E86.0 Dehydration
CPT/HCPCS: 36415; 74177; 80048; 80053; 81003; 81025; 82248; 83690; 85007; 85025; 85060; 96365; 96368; 96375; 99285; J2405; J8499

== ENCOUNTER 2020-06-05 23:26 | Emergency (ER) | payer MEDICAID ==
[~2020-06-05] VITALS: Ht 162.6 cm; Wt 106.1 kg
[~2020-06-05 23:26] MED LIST changes: +PROBIOTIC1 EAC2 PO
--- NOTE | 2020-06-06 00:11 | NUR ---
ED Nurse Note: Pt ambulated into ED. C/O left side abdominal pain and tenderness. Pt AAO x4. Pt using the bathroom at this time.
[2020-06-06 00:12] VITALS: BP 139/87
[2020-06-06] MEDS ORDERED: Morphine Sulfate 4mg/ml Inj (IV USE ONLY) IVP ONE (00:30)
--- NOTE | 2020-06-06 00:30 | Emergency Room Report ---
History of Present Illness General Chief Complaint: Abdominal Pain Source: Patient Present Illness HPI This is a 29-year-old female with a history of diverticulitis in September of last year. She presents with left lower quadrant pain. Onset this morning. Pain is 8 out of 10. Worse with movement. Worse with palpation. Better with rest. Denies any fever chills. No nausea no vomiting or diarrhea. No radiation of her pain. Allergies: Coded Allergies: Dust (Verified Allergy, Mild, Itching, 09/29/19) COVID-19 Screening Contact w/high risk pt: No Recent Travel to affected area: No Experienced COVID-19 symptoms?: No COVID-19 Testing performed WORK DISTRIBUTOR: No - 10month ago COVID-19 Testing Source: oral swab Patient History Past Medical History: see triage record, old chart reviewed Past Surgical History: none Pertinent Family History: none Social History: Denies: smoking Last Menstrual Period: 05/17/2020 Now: No Immunizations: other Reviewed Nursing Documentation: PMH: Agreed; PSxH: Agreed Review of Systems Eye: Denies: eye pain, blurred vision ENT: Denies: ear pain, nose congestion, throat swelling Respiratory: Denies: cough, shortness of breath Cardiovascular: Denies: chest pain, palpitations Gastrointestinal: Reports: abdominal pain; Denies: diarrhea, nausea, vomiting Musculoskeletal: Denies: back pain, joint pain Skin: Denies: rash Neurological: Denies: headache, numbness Endocrine: Denies: increased thirst, increased urine Hematologic/Lymphatic: Denies: easy bruising All Other Systems: negative except mentioned in HPI Physical Exam Vital Signs Date Time Temp Pulse Resp B/P (MAP) Pulse Ox O2 Delivery O2 Flow Rate FiO2 06/05/20 23:53 98.2 86 20 139/87 (104) 97 Room Air Vitals unremarkable Sp02 EP Interpretation: reviewed, normal General Appearance: well appearing, no apparent distress, alert Head: normocephalic, atraumatic Eyes: bilateral eye PERRL, bilateral eye EOMI ENT: hearing grossly normal, normal pharynx Neck: full range of motion, supple, no meningismus Respiratory: chest non-tender, lungs clear, normal breath sounds Cardiovascular #1: regular rate, rhythm, no murmur Gastrointestinal: non tender, no mass, no organomegaly, no bruit, non- distended, tenderness - Left lower quadrant Musculoskeletal: back normal, normal range of motion, gait/station normal Psychiatric: mood/affect normal Medical Decision Making Diagnostic Impression: Primary Impression: Diverticulitis ER Course This patient presents with left lower quadrant pain. She has uncomplicated diverticulitis. Antibiotics given here. Will discharge home. No evidence of acute abdomen or obstruction. CT/MRI/US Diagnostic Results CT/MRI/US Diagnostic Results : Imaging Test Ordered: CT abdomen and pelvis Impression Read by radiologist. Diverticulitis of sigmoid colon Last Vital Signs Date Time Temp Pulse Resp B/P (MAP) Pulse Ox O2 Delivery O2 Flow Rate FiO2 06/06/20 00:12 98.2 20 139/87 97 Room Air 06/06/20 00:12 86 Status: improved Disposition: HOME, SELF-CARE Condition: Stable Scripts Hydrocodone/Acetaminophen 5-325* (HYDROCODONE/ACETAMINOPHEN 5-325*) 1 Each Tablet 1 TAB ORAL Q6H PRN for For Pain, #20 TAB 0 Refills Prov: Ryan Owens MD 06/06/20 Metronidazole* (FLAGYL*) 500 Mg Tablet 500 MG ORAL BID, #14 TAB Prov: Ryan Owens MD 06/06/20 Ciprofloxacin Hcl* (CIPROFLOXACIN HCL*) 500 Mg Tablet 500 MG ORAL Q12H, #14 TAB 0 Refills Prov: Ryan Owens MD 06/06/20 Referrals: NOT CHOSEN IPA/,REFERRING (PCP) Additional Instructions: Follow-up with your doctor and 3 to 7 days. Return if symptoms worsen or having fever. Ryan Owens MD Jun 06, 2020 00:30
--- NOTE | 2020-06-06 00:42 | NUR ---
ED Nurse Note: IV started, urine and blood sent to lab. Warm blanket provided. Pt put on BP and pulse ox monitor.
[2020-06-06 00:52] LABS: BASOPHILS % (AUTO) 0.7 % (0.0-2.0); EOSINOPHILS % (AUTO) 2.8 % (0.0-3.0); HEMATOCRIT 38.2 % (37.0-47.0); HEMOGLOBIN 13.3 G/DL (12.0-16.0); LYMPHOCYTES % (AUTO) 34.6 % (20.0-45.0); MEAN CORPUSCULAR VOLUME 92 FL (80-99); MONOCYTES % (AUTO) 5.7 % (1.0-10.0); NEUTROPHILS % (AUTO) 56.2 % (45.0-75.0); PLATELET COUNT 380 K/UL (150-450); RED BLOOD COUNT 4.16 M/UL (4.20-5.40); RED CELL DISTRIBUTION WIDTH 12.3 % (11.6-14.8); WHITE BLOOD COUNT 11.2 K/UL (4.8-10.8)
[2020-06-06 00:52] LABS: APPEARANCE,URINE CLEAR; BILIRUBIN, URINE NEGATIVE (NEGATIVE); COLOR,URINE PALE YELLOW; GLUCOSE, URINE (UA) NEGATIVE (NEGATIVE); KETONES,URINE NEGATIVE (NEGATIVE); LEUKOCYTE ESTERASE ,URINE NEGATIVE (NEGATIVE); NITRITE,URINE NEGATIVE (NEGATIVE); PH,URINE 7 (4.5-8.0); PROTEIN,URINE NEGATIVE (NEGATIVE); UROBILINOGEN,URINE NORMAL MG/DL (0.0-1.0)
[2020-06-06 01:00] LABS: ANION GAP 10 mmol/L (5-15); BLOOD UREA NITROGEN 9 mg/dL (7-18); CALCIUM 8.4 MG/DL (8.5-10.1); CARBON DIOXIDE 24 MMOL/L (21-32); CHLORIDE 104 MMOL/L (98-107); CREATININE 0.7 MG/DL (0.55-1.30); POTASSIUM 3.6 MMOL/L (3.5-5.1); SODIUM 138 MMOL/L (136-145)
--- NOTE | 2020-06-06 01:30 | NUR ---
ED Nurse Note: Pt to CT scan.
--- NOTE | 2020-06-06 01:50 | NUR ---
ED Nurse Note: Pt returned from CT, warm blanket provided, bed in lowest postion, rails up, call light in reach.
[2020-06-06 02:01] VITALS: BP 115/68
--- NOTE | 2020-06-06 02:31 | Diagnostic Imaging Report ---
EXAM: CT Abdomen and Pelvis Without Intravenous Contrast CLINICAL HISTORY: ABD PAIN TECHNIQUE: Axial computed tomography images of the abdomen and pelvis without intravenous contrast. CTDI is 13.80 mGy and DLP is 718.50 mGy-cm. One or more of the following dose reduction techniques were used: automated exposure control, adjustment of the mA and/or kV according to patient size, use of iterative reconstruction technique. COMPARISON: CT abdomen and pelvis dated 09/29/19. FINDINGS: Lung bases: Unremarkable. No mass. No consolidation. Mediastinum: There is a small hiatal hernia which is unchanged. ABDOMEN: Liver: Unremarkable. Gallbladder and bile ducts: Unremarkable. No calcified stones. No ductal dilation. Pancreas: Unremarkable. No ductal dilation. Spleen: Unremarkable. No splenomegaly. Adrenals: Unremarkable. No mass. Kidneys and ureters: Unremarkable. No obstructing stones. No hydronephrosis. Stomach and bowel: There is diverticulitis of the sigmoid colon. No free air or abscess. No obstruction. PELVIS: Appendix: No findings to suggest acute appendicitis. Bladder: Unremarkable. No stones. Reproductive: Unremarkable as visualized. ABDOMEN and PELVIS: Intraperitoneal space: Small amount of free fluid in the cul-de-sac. Bones/joints: No acute fracture. No dislocation. Soft tissues: Unremarkable. Vasculature: Unremarkable. No abdominal aortic aneurysm. Lymph nodes: Unremarkable. No enlarged lymph nodes. IMPRESSION: Diverticulitis of the sigmoid colon which was also seen on the previous exam. No free air or abscess.
[2020-06-06] MEDS ORDERED: metroNIDAZOLE 500mg tab ORAL ONE (03:00)
[2020-06-06] MEDS ORDERED: Ciprofloxacin 500mg tab ORAL ONE (03:00)
[2020-06-06] MEDS ORDERED: CIPROFLOXACIN500 M2 ORAL (03:04)
[2020-06-06] MEDS ORDERED: METRONIDAZOLE500 MG ORAL (03:04)
[2020-06-06] MEDS ORDERED: HYDROCODON-ACE1 EA15 ORAL (03:04)
--- NOTE | 2020-06-06 03:12 | NUR ---
ED Nurse Note: Pt cleared by health care Provider for discharge. D/C instructions/prescription was given and explained to pt and pt verbalized understanding of teachings. All medical devices such as IV and ID band removed. Pt is AAO x4, ambulatory and left with all personal belongings.
[2020-06-06 03:13] VITALS: BP 106/65
== END 2020-06-06 03:17 | disposition home or self-care (01) ==
LOC: EMR 23:59
DX: K57.92 Diverticulitis of intestine, part unspecified, without perforation or abscess without bleeding (principal); Z91.09 Other allergy status, other than to drugs and biological substances
CPT/HCPCS: 36415; 74176; 80048; 81003; 81025; 85025; 96361; 96374; 96375; J2270; J2405; J7030; Z7502; 99284